=== PATIENT | male | born 1945 | race Caucasian/White ===

== ENCOUNTER 2017-02-11 22:27 | Inpatient (IN) | payer MEDICARE, BC ==
[~2017-02-11] VITALS: Ht 188 cm; Wt 120.9 kg
[2017-02-11 22:50] LABS: BASO % 0 % (0-3); EOS % 1 % (0-3); HEMATOCRIT 36.7 % (39.0-53.0); HEMOGLOBIN 12.5 g/dL (13.0-17.5); LYMPH # 3.8 x10^3/uL (1.0-4.8); LYMPH % 38 % (24-48); MEAN CORPUSCULAR HEMOGLOBIN 30 pg (25-35); MEAN CORPUSCULAR HGB CONC 34 g/dL (31-37); MEAN CORPUSCULAR VOLUME 87 fL (79-100); MONO % 8 % (0-9); NEUT % 53 % (31-73); PLATELET COUNT 198 x10^3/uL (140-400); RED BLOOD COUNT 4.22 x10^6/uL (4.30-5.70); RED CELL DISTRIBUTION WIDTH 13.1 % (11.5-14.5)
[2017-02-11 22:51] LABS: BILIRUBIN,URINE NEGATIVE (NEG); GLUCOSE,URINE >=1000 mg/dL (NEG); NITRITE,URINE NEGATIVE (NEG); PH,URINE 6.5; PROTEIN,URINE NEGATIVE (NEG-TRACE)
[2017-02-11] MEDS ORDERED: IV NORMAL SALINE 500ML BAG 500 ML IV ONE (23:00)
[2017-02-11] MEDS ORDERED: ONDANSETRON PF 4 MG/2 ML VIAL. IV ONE ×2 (23:00→23:45)
[2017-02-11 23:01] LABS: CALCIUM 9.4 mg/dL (8.5-10.1); CREATININE 1.4 mg/dL (0.7-1.3); GFR 49.7; POTASSIUM 3.9 mmol/L (3.5-5.1)
[2017-02-11 23:03] LABS: BACTERIA,URINE 0 /HPF (0-FEW); RBC,URINE OCC /HPF (0-2); SQUAMOUS EPITHELIAL CELL,UR FEW /LPF; WBC,URINE 0 /HPF (0-4)
[2017-02-11 23:07] LABS: ALBUMIN 3.8 g/dL (3.4-5.0); ALBUMIN/GLOBULIN RATIO 1.2 (1.0-1.7); TOTAL BILIRUBIN 1.3 mg/dL (0.2-1.0)
[2017-02-11] MEDS: fentaNYL PF VIAL 100 MCG/2 ML VIAL IV PRN (23:13)
--- NOTE | 2017-02-11 23:44 | RAD ---
Examination: CT of the abdomen pelvis without contrast. HISTORY History of right flank pain. COMPARISON None available. TECHNIQUE Axial CT images of the abdomen pelvis performed without contrast. Coronal sagittal reformats were performed. Exposure: One or more of the following dose reduction technique were utilized for this examination: 1. Automated exposure control. 2.Adjustment of MA and /or KV according to patient size. 3. Use of iterative reconstruction technique. FINDINGS The bibasilar lungs grossly unremarkable. No evidence of free air identified in the abdomen. The evaluation of the solid organs is limited without IV contrast. The evaluation the bowel is limited without oral contrast. The visualized non contrasted liver, spleen, adrenals grossly appears unremarkable. The gallbladder is mildly distended. The stomach is mildly distended. Visualized pancreas grossly appears unremarkable. The small bowel is nondilated left the appendix is normal. Feces and gas noted in the colon. Multiple sigmoid colon diverticulosis identified. On series 2, image number 182 there is subtle fat stranding identified about the one of the sigmoid colon diverticulosis, question minimal diverticulitis. Urinary bladder is mildly distended. There is an 6 millimeter intrarenal collecting system calculus identified in the left kidney. There is a 6 millimeter calculus identified at the in the proximal right ureter causing mild right-sided hydronephrosis and proximal right hydroureter. A cystic structure identified in the inferior pole of the right kidney probably cyst or cystic lesion measuring 3.3 centimeters. There is a moderate inflammatory fat stranding identified above the right kidney could be due to back pressure. Mild degenerative changes lumbar spine. L5 subchondral lies is identified. There is mild anterior listhesis of L5 on S1. Impression : 1. 6 millimeter calculus identified in the proximal right ureter causing mild right-sided hydronephrosis and proximal hydroureter. There is moderate inflammatory fat stranding identified about the right kidney likely secondary to back pressure from obstructing calculus. 2. 6 millimeter intrarenal collecting system calculus identified in the left kidney. 3. Multiple sigmoid colon diverticulosis. On series 2, image number 182 there is subtle fat stranding identified about the one of the sigmoid colon diverticulosis, question minimal diverticulitis. Electronically signed by: Lit Canchola (Feb 11, 2017 23:42:35)
[2017-02-12] VITALS (7 sets, daily range): BP systolic 118–162; BP diastolic 71–79
[2017-02-12] MEDS: fentaNYL PF VIAL 100 MCG/2 ML VIAL IV PRN (00:43)
[2017-02-12] MEDS ORDERED: KETOROLAC 15 MG/ML VIAL. IV PRN (01:00)
[2017-02-12] MEDS ORDERED: MORPHINE SULFATE 4 MG/ML DISP.SYRIN. IV PRN (01:00)
[2017-02-12] MEDS ORDERED: KETOROLAC 15 MG/ML VIAL. IV ONE (01:00)
[2017-02-12] MEDS ORDERED: TAMSULOSIN 0.4 MG CAP.ER.24H. PO ONE (01:00)
[2017-02-12] MEDS ORDERED: ONDANSETRON PF 4 MG/2 ML VIAL. IV ONE (01:00)
[2017-02-12] MEDS ORDERED: ACETAMINOPHEN 325 MG TABLET. PO PRN (01:00)
[2017-02-12] MEDS ORDERED: ONDANSETRON PF 4 MG/2 ML VIAL. IV PRN (01:00)
--- NOTE | 2017-02-12 01:06 | ACF ---
Admission Forms Criteria RENAL COLIC AND KIDNEY STONES Clinical Indications for Admission to Inpatient Care ( Place 'X' for any and all applicable criteria): Admission is indicated for ANY ONE of the following (1)(2)(3)(4): [X]I. Inpatient admission required rather than observation care (Also use Renal Colic and Kidney Stones: Observation Care Criteria as appropriate) because of ANY ONE of the following: [ ]a) Severe pain requiring acute inpatient management [ ]b) Urinary tract infection identified [ ]c) Vomiting that is severe or persistent [ ]d) IV fluid required rather than oral rehydration to replace significant ongoing (eg, for greater than 24 hours) losses (greater than 200 mL/hr or 3 L/m2 per day) [ ]e) Percutaneous or open drainage (eg, abscess, biliary tract) procedures [X]f) Other condition, treatment or monitoring requiring inpatient admission [ ]II. Impending acute renal failure [ ]III. Bilateral obstruction [ ]IV. Single kidney with obstruction [ ]V. Transplanted kidney with obstruction [ ]. Possible open surgical procedure needed (eg, pyonephrosis, stone removal not amendable to other means) [ ]VII. Hemodynamic instability Extended stay beyond goal length of stay may be needed for(2)(3)(31): [ ]a) Failed initial stone removal (32) [ ]b) Pyonephrosis [ ]c) Obstructive uropathy with urinary tract infection [ ]d) Procedure complications [ ]e) Comorbidities (22) The original [employer] content created by [employer] has been revised. The portions of the content which have been revised are identified through the use of italic text or in bold, and [facility] has neither reviewed nor approved the modified material. All other unmodified content is copyright [employer]. Please see references footnoted in the original [employer] edition 2016 Admission Criteria Met?: Yes TEO HOWARD Feb 12, 2017 01:05
[2017-02-12] MEDS ORDERED: DEXTROSE 50% 25 GM / 50ML DISP.SYRIN. IV PRN ×2 (01:45→11:45)
--- NOTE | 2017-02-12 01:52 | ED.ADGEN ---
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 Patient states the pain is the same as the pain he experienced with his last episode of renal calculi. Discussed occurred about 2 years ago, he states his last seen by urology about a year ago, states that previously he has passed the stones without any assistance. Patient states the pain began suddenly, and did not respond to the 10 mg hydrocodone which she received for pain. Patient is also experiencing nausea and vomiting, denies any fevers or chills, any injuries, any weakness numbness or tingling. He states that his knee is healing well, is experiencing no pain in his knee at this time , he did perform physical therapy without issue earlier today. No chest pain, shortness of breath. Review of Systems Review of Systems Constitutional: Denies fever or chills. [] Eyes: Denies change in visual acuity. [] HENT: Denies nasal congestion or sore throat. [] Respiratory: Denies cough or shortness of breath. [] Cardiovascular: Denies chest pain or edema. [] GI: Right lower quadrant abdominal pain and right flank pain, associated with nausea and vomiting. No diarrhea, no bloody stools or bloody emesis. : Denies dysuria. [] Musculoskeletal: Denies back pain or joint pain. [] Integument: Denies rash. [] Neurologic: Denies headache, focal weakness or sensory changes. [] Endocrine: Denies polyuria or polydipsia. [] Lymphatic: Denies swollen glands. [] Psychiatric: Denies depression or anxiety. [] Current Medications Current Medications Current Medications Medications (Trade) Dose Ordered Sig/Oli Start Time Stop Time Status Last Admin Dose Admin Fentanyl Citrate (Fentanyl 2ml Vial) 50 mcg PRN Q15MIN PRN 02/11/17 22:45 02/12/17 22:44 02/12/17 00:43 50 MCG Ondansetron HCl (Zofran) 4 mg 1X ONCE 02/11/17 23:45 02/11/17 23:50 DC 02/11/17 23:45 4 MG Ondansetron HCl 4 mg 4 mg 1X ONCE 02/11/17 23:00 02/11/17 23:01 DC 02/11/17 23:12 4 MG Sodium Chloride (Iv Sodium Chloride 0.9% 500ml Bag) 500 ml @ 500 mls/hr 1X ONCE 02/11/17 23:00 02/11/17 23:59 DC 02/11/17 23:11 500 MLS/HR Allergies Allergies Allergies Coded Allergies Type Severity Reaction Last Updated Verified shellfish derived Allergy Severe 02/11/17 Yes Physical Exam Physical Exam Constitutional: Well developed, well nourished, no acute distress, non-toxic appearance. [] HENT: Normocephalic, atraumatic, bilateral external ears normal, oropharynx moist, no oral exudates, nose normal. [] Eyes: PERRLA, EOMI, conjunctiva normal, no discharge. [] Neck: Normal range of motion, no tenderness, supple, no stridor. [] Cardiovascular:Heart rate regular rhythm, no murmur [] Lungs & Thorax: Bilateral breath sounds clear to auscultation [] Abdomen: Bowel sounds normal, soft, no tenderness, no masses, no pulsatile masses. [] Skin: Warm, dry, no erythema, no rash. [] Back: No tenderness, no CVA tenderness. [] Extremities: No tenderness, no cyanosis, no clubbing, ROM intact, no edema. [] Neurologic: Alert and oriented X 3, normal motor function, normal sensory function, no focal deficits noted. [] Psychologic: Affect normal, judgement normal, mood normal. [] Current Patient Data Vital Signs Vital Signs Date Time Temp Pulse Resp B/P Pulse Ox O2 Delivery O2 Flow Rate FiO2 02/11/17 23:13 22 02/11/17 22:30 97.7 100 172/83 99 Room Air 97.7 Lab Values Laboratory Tests Test 02/11/17 22:35 02/11/17 22:45 White Blood Count 10.0x10^3/uL (4.0-11.0) Red Blood Count 4.22x10^6/uL (4.30-5.70) L Hemoglobin 12.5g/dL (13.0-17.5) L Hematocrit 36.7% (39.0-53.0) L Mean Corpuscular Volume 87fL (79-100) Mean Corpuscular Hemoglobin 30pg (25-35) Mean Corpuscular Hemoglobin Concent 34g/dL (31-37) Red Cell Distribution Width 13.1% (11.5-14.5) Platelet Count 198x10^3/uL (140-400) Neutrophils (%) (Auto) 53% (31-73) Lymphocytes (%) (Auto) 38% (24-48) Monocytes (%) (Auto) 8% (0-9) Eosinophils (%) (Auto) 1% (0-3) Basophils (%) (Auto) 0% (0-3) Neutrophils # (Auto) 5.3x10^3uL (1.8-7.7) Lymphocytes # (Auto) 3.8x10^3/uL (1.0-4.8) Monocytes # (Auto) 0.8x10^3/uL (0.0-1.1) Eosinophils # (Auto) 0.1x10^3/uL (0.0-0.7) Basophils # (Auto) 0.0x10^3/uL (0.0-0.2) Sodium Level 133mmol/L (136-145) L Potassium Level 3.9mmol/L (3.5-5.1) Chloride Level 98mmol/L (98-107) Carbon Dioxide Level 24mmol/L (21-32) Anion Gap 11 (6-14) Blood Urea Nitrogen 22mg/dL (8-26) Creatinine 1.4mg/dL (0.7-1.3) H Estimated GFR (Cockcroft-Gault) 49.7 BUN/Creatinine Ratio 16 (6-20) Glucose Level 272mg/dL (70-99) H Calcium Level 9.4mg/dL (8.5-10.1) Total Bilirubin 1.3mg/dL (0.2-1.0) H Aspartate Amino Transferase (AST) 27U/L (15-37) Alanine Aminotransferase (ALT) 32U/L (16-63) Alkaline Phosphatase 58U/L (46-116) Total Protein 7.0g/dL (6.4-8.2) Albumin 3.8g/dL (3.4-5.0) Albumin/Globulin Ratio 1.2 (1.0-1.7) Lipase 118U/L (73-393) Urine Collection Type Unknown Urine Color Yellow Urine Clarity Clear Urine pH 6.5 Urine Specific Mcguffey 1.015 Urine Protein Negativemg/dL (NEG-TRACE) Urine Glucose (UA) >=1000mg/dL (NEG) Urine Ketones (Stick) 15mg/dL (NEG) Urine Blood Negative (NEG) Urine Nitrite Negative (NEG) Urine Bilirubin Negative (NEG) Urine Urobilinogen Dipstick 1.0mg/dL (0.2 mg/dL) Urine Leukocyte Esterase Negative (NEG) Urine RBC Occ/HPF (0-2) Urine WBC 0/HPF (0-4) Urine Squamous Epithelial Cells Few/LPF Urine Bacteria 0/HPF (0-FEW) Laboratory Tests 02/11/17 22:35 Laboratory Tests 02/11/17 22:35 EKG EKG EC: Sinus rhythm, heart rate 100 bpm, upright axis, QTC of 431, MT 120, QRS of 90, T-wave flattening noted in V2 and aVF, no ST elevations or depressions, abnormal ECG, does not meet STEMI criteria. As interpreted by me. Radiology/Procedures Radiology/Procedures [] [facility] [address] [place], [place] [id number] IMAGING REPORT Signed PATIENT: RICARDO NAVARRO ACCOUNT: [id number] : 1945 LOCATION: ER AGE: 71 SEX: M EXAM STATUS: REG ER ORD. PHYSICIAN: GIANNI DUBOSE DO REASON: RT flank/abd pain, hx renal calculi PROCEDURE: CT ABDOMEN PELVIS WO CONTRAST Examination: CT of the abdomen pelvis without contrast. HISTORY History of right flank pain. COMPARISON None available. TECHNIQUE Axial CT images of the abdomen pelvis performed without contrast. Coronal sagittal reformats were performed. Exposure: One or more of the following dose reduction technique were utilized for this examination: 1. Automated exposure control. 2.Adjustment of MA and /or KV according to patient size. 3. Use of iterative reconstruction technique. FINDINGS The bibasilar lungs grossly unremarkable. No evidence of free air identified in the abdomen. The evaluation of the solid organs is limited without IV contrast. The evaluation the bowel is limited without oral contrast. The visualized non contrasted liver, spleen, adrenals grossly appears unremarkable. The gallbladder is mildly distended. The stomach is mildly distended. Visualized pancreas grossly appears unremarkable. The small bowel is nondilated left the appendix is normal. Feces and gas noted in the colon. Multiple sigmoid colon diverticulosis identified. On series 2, image number 182 there is subtle fat stranding identified about the one of the sigmoid colon diverticulosis, question minimal diverticulitis. Urinary bladder is mildly distended. There is an 6 millimeter intrarenal collecting system calculus identified in the left kidney. There is a 6 millimeter calculus identified at the in the proximal right ureter causing mild right-sided hydronephrosis and proximal right hydroureter. A cystic structure identified in the inferior pole of the right kidney probably cyst or cystic lesion measuring 3.3 centimeters. There is a moderate inflammatory fat stranding identified above the right kidney could be due to back pressure. Mild degenerative changes lumbar spine. L5 subchondral lies is identified. There is mild anterior listhesis of L5 on S1. Impression : 1. 6 millimeter calculus identified in the proximal right ureter causing mild right-sided hydronephrosis and proximal hydroureter. There is moderate inflammatory fat stranding identified about the right kidney likely secondary to back pressure from obstructing calculus. 2. 6 millimeter intrarenal collecting system calculus identified in the left kidney. 3. Multiple sigmoid colon diverticulosis. On series 2, image number 182 there is subtle fat stranding identified about the one of the sigmoid colon diverticulosis, question minimal diverticulitis. Electronically signed by: Lit Canchola (Feb 11, 2017 23:42:35) DICTATED and SIGNED BY: LIT CANCHOLA MD DATE: 02/11/17 7494 CC: QASIM SHAW; GIANNI DUBOSE DO ~ Course & Med Decision Making Course & Med Decision Making Pertinent Labs and Imaging studies reviewed. (See chart for details) Patient's examination and history concerning for recurrent renal calculi. Patient received IV fluids, antiemetics, pain medication with improvement of his symptoms. CT of abdomen and pelvis performed without contrast, reveals 6 mm obstructing stone in the right ureter, with surrounding stranding, no leukocytosis, no evidence of infection noted in the urine. I did discuss these findings with patient, patient also noted to have potential mild diverticulitis of the sigmoid colon, however he not experiencing any diarrhea, or other symptoms, at this time will continue to monitor as the concerning pathology is the renal calculi as noted. Mild renal sufficiency noted with a creatinine of 1.4. Patient is agreeable for admission to the hospital for evaluation by urology. As there is no evidence of leukocytosis or bacteria in the urine, will hold off antibiotics at this time, we'll treat symptomatically. Patient's nausea and pain controlled with IV medications, IV fluids infusing, at time of discussion with Dr. Oleary of internal medicine, patient accepted to her service as a full admission to the medical surgical floor, with supportive management and urology consultation. Bridge orders entered per discussion. Patient transferred to the floor without issue. Dragon Disclaimer Dragon Disclaimer This electronic medical record was generated, in whole or in part, using a voice recognition dictation system. Departure Impression: Primary Impression: Renal calculus, right Additional Impression: Acute abdominal pain in right flank Disposition: ADMITTED INPATIENT Admitting Physician: Sanaz Oleary Condition: IMPROVED Problem Qualifiers GIANNI DUBOSE DO Feb 12, 2017 01:52
[2017-02-12] MEDS ORDERED: MELO-156 PO (03:36)
[2017-02-12] MEDS ORDERED: ATOR20TA PO (03:36)
[2017-02-12] MEDS ORDERED: GLIP10TA13 PO (03:36)
[2017-02-12] MEDS ORDERED: UBID200C4 PO (03:36)
[2017-02-12] MEDS ORDERED: CHOL500015 PO (03:36)
[2017-02-12] MEDS ORDERED: HYDR12.58 PO (03:36)
[2017-02-12] MEDS ORDERED: CETI10TA22 PO (03:36)
[2017-02-12] MEDS ORDERED: HYDR-2666 PO (03:36)
[2017-02-12] MEDS ORDERED: TAMS0.4C2 PO (03:36)
[2017-02-12] MEDS ORDERED: METF-620 PO ×2 (03:36)
[2017-02-12] MEDS ORDERED: OXYC-323 PO (03:36)
[2017-02-12] MEDS ORDERED: UBID300C PO (03:36)
[2017-02-12] MEDS ORDERED: LOSA50TA6 PO (03:36)
[2017-02-12] MEDS: IV NORMAL SALINE 1000ML BAG 1,000 ML IV SCH ×3 (03:42→16:58)
--- NOTE | 2017-02-12 07:06 | EKG ---
[facility] [address] [place] [id number] Test Date: 2017-02-11 Test Time: 22:31:48 Pat Name: RICARDO NAVARRO Department: Room: [facility] Gender: M [employer] Operator: : 1945 Requested By: RIO NINO Order Number: [id number] Reading MD: Cesar Helm Measurements Intervals [place] Rate: 100 P: -61 DE: 120 QRS: 36 QRSD: 90 T: 31 QT: 332 QTc: 431 Interpretive Statements SINUS RHYTHM Electronically Signed On 02-12-2017 8:38:23 CDT by Cesar Helm
[2017-02-12] MEDS ORDERED: INSULIN ASPART 300 UNITS/3 ML INSULN.PEN SQ SCH (08:00)
[2017-02-12] MEDS ORDERED: TAMSULOSIN 0.4 MG CAP.ER.24H. PO SCH (09:00)
--- NOTE | 2017-02-12 11:26 | PDOC ---
PROGRESS NOTES Vitals Vitals Vital Signs Date Time Temp Pulse Resp B/P Pulse Ox O2 Delivery O2 Flow Rate FiO2 02/12/17 08:15 Room Air 97.0 02/12/17 07:00 97.2 101 16 138/76 94 97.2 Physical Exam General: Alert, Oriented X3 Heart: Normal S1, Normal S2 Lungs: Clear, Wheezing Extremities: No clubbing, Other (EDEMA rle) Skin: Other (erythema RLE THIGH BACK) Labs LABS Laboratory Tests Test 02/11/17 22:35 02/11/17 22:45 02/12/17 07:43 White Blood Count 10.0x10^3/uL (4.0-11.0) Red Blood Count 4.22x10^6/uL (4.30-5.70) Hemoglobin 12.5g/dL (13.0-17.5) Hematocrit 36.7% (39.0-53.0) Mean Corpuscular Volume 87fL (79-100) Mean Corpuscular Hemoglobin 30pg (25-35) Mean Corpuscular Hemoglobin Concent 34g/dL (31-37) Red Cell Distribution Width 13.1% (11.5-14.5) Platelet Count 198x10^3/uL (140-400) Neutrophils (%) (Auto) 53% (31-73) Lymphocytes (%) (Auto) 38% (24-48) Monocytes (%) (Auto) 8% (0-9) Eosinophils (%) (Auto) 1% (0-3) Basophils (%) (Auto) 0% (0-3) Neutrophils # (Auto) 5.3x10^3uL (1.8-7.7) Lymphocytes # (Auto) 3.8x10^3/uL (1.0-4.8) Monocytes # (Auto) 0.8x10^3/uL (0.0-1.1) Eosinophils # (Auto) 0.1x10^3/uL (0.0-0.7) Basophils # (Auto) 0.0x10^3/uL (0.0-0.2) Sodium Level 133mmol/L (136-145) Potassium Level 3.9mmol/L (3.5-5.1) Chloride Level 98mmol/L (98-107) Carbon Dioxide Level 24mmol/L (21-32) Anion Gap 11 (6-14) Blood Urea Nitrogen 22mg/dL (8-26) Creatinine 1.4mg/dL (0.7-1.3) Estimated GFR (Cockcroft-Gault) 49.7 BUN/Creatinine Ratio 16 (6-20) Glucose Level 272mg/dL (70-99) Calcium Level 9.4mg/dL (8.5-10.1) Total Bilirubin 1.3mg/dL (0.2-1.0) Aspartate Amino Transf (AST/SGOT) 27U/L (15-37) Alanine Aminotransferase (ALT/SGPT) 32U/L (16-63) Alkaline Phosphatase 58U/L (46-116) Total Protein 7.0g/dL (6.4-8.2) Albumin 3.8g/dL (3.4-5.0) Albumin/Globulin Ratio 1.2 (1.0-1.7) Lipase 118U/L (73-393) Urine Collection Type Unknown Urine Color Yellow Urine Clarity Clear Urine pH 6.5 Urine Specific [place] 1.015 Urine Protein Negativemg/dL (NEG-TRACE) Urine Glucose (UA) >=1000mg/dL (NEG) Urine Ketones (Stick) 15mg/dL (NEG) Urine Blood Negative (NEG) Urine Nitrite Negative (NEG) Urine Bilirubin Negative (NEG) Urine Urobilinogen Dipstick 1.0mg/dL (0.2 mg/dL) Urine Leukocyte Esterase Negative (NEG) Urine RBC Occ/HPF (0-2) Urine WBC 0/HPF (0-4) Urine Squamous Epithelial Cells Few/LPF Urine Bacteria 0/HPF (0-FEW) Glucose (Fingerstick) 193mg/dL (70-99) Assessment and Plan Assessmemt and Plan Problems Medical Problems: (1) Acute abdominal pain in right flank Status: Acute (2) Renal calculus, right Status: Acute Problems: Comment Review of Relevant I have reviewed the following items deysi (where applicable) has been applied. Labs Laboratory Tests Test 02/11/17 22:35 02/11/17 22:45 02/12/17 07:43 White Blood Count 10.0x10^3/uL (4.0-11.0) Red Blood Count 4.22x10^6/uL (4.30-5.70) Hemoglobin 12.5g/dL (13.0-17.5) Hematocrit 36.7% (39.0-53.0) Mean Corpuscular Volume 87fL (79-100) Mean Corpuscular Hemoglobin 30pg (25-35) Mean Corpuscular Hemoglobin Concent 34g/dL (31-37) Red Cell Distribution Width 13.1% (11.5-14.5) Platelet Count 198x10^3/uL (140-400) Neutrophils (%) (Auto) 53% (31-73) Lymphocytes (%) (Auto) 38% (24-48) Monocytes (%) (Auto) 8% (0-9) Eosinophils (%) (Auto) 1% (0-3) Basophils (%) (Auto) 0% (0-3) Neutrophils # (Auto) 5.3x10^3uL (1.8-7.7) Lymphocytes # (Auto) 3.8x10^3/uL (1.0-4.8) Monocytes # (Auto) 0.8x10^3/uL (0.0-1.1) Eosinophils # (Auto) 0.1x10^3/uL (0.0-0.7) Basophils # (Auto) 0.0x10^3/uL (0.0-0.2) Sodium Level 133mmol/L (136-145) Potassium Level 3.9mmol/L (3.5-5.1) Chloride Level 98mmol/L (98-107) Carbon Dioxide Level 24mmol/L (21-32) Anion Gap 11 (6-14) Blood Urea Nitrogen 22mg/dL (8-26) Creatinine 1.4mg/dL (0.7-1.3) Estimated GFR (Cockcroft-Gault) 49.7 BUN/Creatinine Ratio 16 (6-20) Glucose Level 272mg/dL (70-99) Calcium Level 9.4mg/dL (8.5-10.1) Total Bilirubin 1.3mg/dL (0.2-1.0) Aspartate Amino Transf (AST/SGOT) 27U/L (15-37) Alanine Aminotransferase (ALT/SGPT) 32U/L (16-63) Alkaline Phosphatase 58U/L (46-116) Total Protein 7.0g/dL (6.4-8.2) Albumin 3.8g/dL (3.4-5.0) Albumin/Globulin Ratio 1.2 (1.0-1.7) Lipase 118U/L (73-393) Urine Collection Type Unknown Urine Color Yellow Urine Clarity Clear Urine pH 6.5 Urine Specific [place] 1.015 Urine Protein Negativemg/dL (NEG-TRACE) Urine Glucose (UA) >=1000mg/dL (NEG) Urine Ketones (Stick) 15mg/dL (NEG) Urine Blood Negative (NEG) Urine Nitrite Negative (NEG) Urine Bilirubin Negative (NEG) Urine Urobilinogen Dipstick 1.0mg/dL (0.2 mg/dL) Urine Leukocyte Esterase Negative (NEG) Urine RBC Occ/HPF (0-2) Urine WBC 0/HPF (0-4) Urine Squamous Epithelial Cells Few/LPF Urine Bacteria 0/HPF (0-FEW) Glucose (Fingerstick) 193mg/dL (70-99) Laboratory Tests Test 02/11/17 22:35 02/11/17 22:45 02/12/17 07:43 White Blood Count 10.0x10^3/uL (4.0-11.0) Red Blood Count 4.22x10^6/uL (4.30-5.70) Hemoglobin 12.5g/dL (13.0-17.5) Hematocrit 36.7% (39.0-53.0) Mean Corpuscular Volume 87fL (79-100) Mean Corpuscular Hemoglobin 30pg (25-35) Mean Corpuscular Hemoglobin Concent 34g/dL (31-37) Red Cell Distribution Width 13.1% (11.5-14.5) Platelet Count 198x10^3/uL (140-400) Neutrophils (%) (Auto) 53% (31-73) Lymphocytes (%) (Auto) 38% (24-48) Monocytes (%) (Auto) 8% (0-9) Eosinophils (%) (Auto) 1% (0-3) Basophils (%) (Auto) 0% (0-3) Neutrophils # (Auto) 5.3x10^3uL (1.8-7.7) Lymphocytes # (Auto) 3.8x10^3/uL (1.0-4.8) Monocytes # (Auto) 0.8x10^3/uL (0.0-1.1) Eosinophils # (Auto) 0.1x10^3/uL (0.0-0.7) Basophils # (Auto) 0.0x10^3/uL (0.0-0.2) Sodium Level 133mmol/L (136-145) Potassium Level 3.9mmol/L (3.5-5.1) Chloride Level 98mmol/L (98-107) Carbon Dioxide Level 24mmol/L (21-32) Anion Gap 11 (6-14) Blood Urea Nitrogen 22mg/dL (8-26) Creatinine 1.4mg/dL (0.7-1.3) Estimated GFR (Cockcroft-Gault) 49.7 BUN/Creatinine Ratio 16 (6-20) Glucose Level 272mg/dL (70-99) Calcium Level 9.4mg/dL (8.5-10.1) Total Bilirubin 1.3mg/dL (0.2-1.0) Aspartate Amino Transf (AST/SGOT) 27U/L (15-37) Alanine Aminotransferase (ALT/SGPT) 32U/L (16-63) Alkaline Phosphatase 58U/L (46-116) Total Protein 7.0g/dL (6.4-8.2) Albumin 3.8g/dL (3.4-5.0) Albumin/Globulin Ratio 1.2 (1.0-1.7) Lipase 118U/L (73-393) Urine Collection Type Unknown Urine Color Yellow Urine Clarity Clear Urine pH 6.5 Urine Specific [place] 1.015 Urine Protein Negativemg/dL (NEG-TRACE) Urine Glucose (UA) >=1000mg/dL (NEG) Urine Ketones (Stick) 15mg/dL (NEG) Urine Blood Negative (NEG) Urine Nitrite Negative (NEG) Urine Bilirubin Negative (NEG) Urine Urobilinogen Dipstick 1.0mg/dL (0.2 mg/dL) Urine Leukocyte Esterase Negative (NEG) Urine RBC Occ/HPF (0-2) Urine WBC 0/HPF (0-4) Urine Squamous Epithelial Cells Few/LPF Urine Bacteria 0/HPF (0-FEW) Glucose (Fingerstick) 193mg/dL (70-99) Medications Current Medications Fentanyl Citrate (Fentanyl 2ml Vial) 50 mcg PRN Q15MIN PRN IV PAIN GREATER THAN 3/10 Last administered on 02/12/17 00:43; Start 02/11/17 at 22:45; Stop at 22:44 Ondansetron HCl 4 mg 4 mg 1X ONCE IV Last administered on 02/11/17 23:12; Start 02/11/17 at 23:00; Stop 02/11/17 at 23:01; Status DC Sodium Chloride (Iv Sodium Chloride 0.9% 500ml Bag) 500 ml @ 500 mls/hr 1X ONCE IV Last administered on 02/11/17 23:11; Start 02/11/17 at 23:00; Stop at 23:59; Status DC Ondansetron HCl (Zofran) 4 mg 1X ONCE IV Last administered on 02/11/17 23:45 ; Start 02/11/17 at 23:45; Stop 02/11/17 at 23:50; Status DC Ketorolac Tromethamine (Toradol) 10 mg 1X ONCE IV Last administered on 00:49; Start 02/12/17 at 01:00; Stop 02/12/17 at 01:01; Status DC Ondansetron HCl (Zofran) 4 mg 1X ONCE IV Last administered on 02/12/17 00:47 ; Start 02/12/17 at 01:00; Stop 02/12/17 at 01:01; Status DC Tamsulosin HCl (Flomax) 0.4 mg 1X ONCE PO Last administered on 02/12/17 00:51 ; Start 02/12/17 at 01:00; Stop 02/12/17 at 01:01; Status DC Ondansetron HCl (Zofran) 4 mg PRN Q8HRS PRN IV NAUSEA/VOMITING; Start 02/12/17 at 01:00; Stop 02/13/17 at 00:59 Morphine Sulfate 4 mg 4 mg PRN Q2HR PRN IV SEVERE PAIN; Start 02/12/17 at 01:00 ; Stop 02/13/17 at 00:59 Sodium Chloride (Iv Sodium Chloride 0.9% 1000ml Bag) 1,000 ml @ 125 mls/hr Q8H IV Last administered on 02/12/17 08:32; Start 02/12/17 at 00:58; Stop at 00:57 Acetaminophen (Tylenol) 650 mg PRN Q4HRS PRN PO FEVER; Start 02/12/17 at 01:00 ; Stop 02/13/17 at 00:59 Ketorolac Tromethamine (Toradol) 10 mg PRN Q8HRS PRN IV MODERATE PAIN; Start at 01:00; Stop 02/17/17 at 00:59 Tamsulosin HCl (Flomax) 0.4 mg DAILY PO Last administered on 02/12/17 08:26; Start 02/12/17 at 09:00 Insulin Aspart (Novolog) 0-5 UNITS TIDWMEALS SQ Last administered on 02/12/17 08:31; Start 02/12/17 at 08:00 Dextrose (Dextrose 50%-Water Syringe) 12.5 gm PRN Q15MIN PRN IV SEE COMMENTS; Start 02/12/17 at 01:45 Active Scripts Active Reported Hydrocodone-Apap 5-325 (Hydrocodone Bit/Acetaminophen) 1 Each Tablet 1-2 Tab PO Q4HRS PRN Percocet 5-325 Mg Tablet (Oxycodone/Acetaminophen) 1 Each Tablet 1-2 Tab PO Q4- 6HRS Co Q-10 (Ubidecarenone) 300 Mg Capsule 300 Mg PO DAILY Co Q-10 (Ubidecarenone) 200 Mg Capsule 200 Mg PO DAILY Vitamin D (Cholecalciferol (Vitamin D3)) 5,000 Unit Tablet 5,000 Unit PO Zyrtec (Cetirizine Hcl) 10 Mg Tablet 10 Mg PO HS Lipitor (Atorvastatin Calcium) 20 Mg Tablet 20 Mg PO HS Meloxicam 7.5 Mg Tablet 7.5 Mg PO DAILY Tamsulosin Hcl 0.4 Mg Cap.er.24h 0.4 Mg PO DAILY Hydrochlorothiazide Tablet (Hydrochlorothiazide) 12.5 Mg Tablet 12.5 Mg PO DAILY Losartan Potassium 50 Mg Tablet 80 Mg PO DAILY Glipizide 10 Mg Tablet 10 Mg PO HS Metformin Hcl 1,000 Mg Tablet 1,500 Mg PO HS Metformin Hcl 1,000 Mg Tablet 1,000 Mg PO DAILY Vitals/I & O Vital Sign - Last 24 Hours 02/11/17 02/11/17 02/11/17 02/11/17 22:30 22:59 23:13 23:43 Temp 97.7 97.7 Pulse 100 98 94 Resp 18 24 B/P 172/83 153/90 145/102 Pulse Ox 99 98 95 O2 Delivery Room Air Room Air Room Air 02/12/17 02/12/17 02/12/17 02/12/17 00:29 00:43 00:59 01:29 Pulse 100 96 96 Resp 15 19 B/P 156/74 138/72 153/66 Pulse Ox 100 96 96 O2 Delivery Room Air Room Air Room Air Room Air 02/12/17 02/12/17 02/12/17 02/12/17 01:45 03:01 03:52 07:00 Temp 98.6 98.6 97.2 98.6 98.6 97.2 Pulse 95 95 101 Resp 16 B/P 134/71 134/71 138/76 Pulse Ox 97 94 O2 Delivery Room Air Room Air Room Air Room Air O2 Flow Rate 97.0 02/12/17 08:15 O2 Delivery Room Air O2 Flow Rate 97.0 SOPHIE TORRES MD Feb 12, 2017 11:26
--- NOTE | 2017-02-12 11:28 | PDOC1 ---
History and Physical Current Problem List Problem List Problems Medical Problems: (1) Acute abdominal pain in right flank Status: Acute (2) Renal calculus, right Status: Acute Current Medications Current Medications Current Medications Medications (Trade) Dose Ordered Sig/Oli Start Time Stop Time Status Last Admin Dose Admin Acetaminophen (Tylenol) 650 mg PRN Q4HRS PRN 02/12/17 01:00 02/13/17 00:59 Dextrose (Dextrose 50%-Water Syringe) 12.5 gm PRN Q15MIN PRN 02/12/17 01:45 Fentanyl Citrate (Fentanyl 2ml Vial) 50 mcg PRN Q15MIN PRN 02/11/17 22:45 02/12/17 22:44 02/12/17 00:43 Insulin Aspart (Novolog) 0-5 UNITS TIDWMEALS 02/12/17 08:00 02/12/17 08:31 Ketorolac Tromethamine (Toradol) 10 mg PRN Q8HRS PRN 02/12/17 01:00 02/17/17 00:59 Morphine Sulfate 4 mg 4 mg PRN Q2HR PRN 02/12/17 01:00 02/13/17 00:59 Ondansetron HCl (Zofran) 4 mg PRN Q8HRS PRN 02/12/17 01:00 02/13/17 00:59 Ondansetron HCl 4 mg 4 mg 1X ONCE 02/11/17 23:00 02/11/17 23:01 DC 02/11/17 23:12 Sodium Chloride (Iv Sodium Chloride 0.9% 500ml Bag) 500 ml @ 500 mls/hr 1X ONCE 02/11/17 23:00 02/11/17 23:59 DC 02/11/17 23:11 Sodium Chloride (Iv Sodium Chloride 0.9% 1000ml Bag) 1,000 ml @ 125 mls/hr Q8H 02/12/17 00:58 02/13/17 00:57 02/12/17 08:32 Tamsulosin HCl (Flomax) 0.4 mg DAILY 02/12/17 09:00 02/12/17 08:26 Allergies Allergies Allergies Coded Allergies Type Severity Reaction Last Updated Verified shellfish derived Allergy Severe 02/11/17 Yes ROS Review of System CONSTITUTIONAL: No fever or chills EYES: No recent changes SKIN: No rash or itching CARDIOVASCULAR: No chest pain, syncope, palpitations, or edema RESPIRATORY: No SOB or cough GASTROINTESTINAL: No nausea, vomiting BUT abdominal pain RLQ NEUROLOGICAL: No headaches or weakness ENDOCRINE: No cold or heat intolerance GENITOURINARY: No urgency or frequency of urination MUSCULOSKELETAL: No back pain or joint pain LYMPHATICS: No enlarged lymph nodes PSYCHIATRIC: No anxiety or depression Physical Exam Physical Exam GEN.: No apparent distress. Alert and oriented times 3 HEENT: Head is normocephalic, atraumatic NECK: Supple. no jvd LUNGS: Clear to auscultation. normal airflow HEART: RRR, S1, S2 present. Peripheral pulses intact ABDOMEN: Soft, nontender. Positive bowel sounds. EXTREMITIES: RLE edema +3, redness on back of leg R, thigh, NEUROLOGIC: Normal speech, normal tone PSYCHIATRIC: Normal affect, normal mood. SKIN: ? petechia Vitals Vitals Vital Signs Date Time Temp Pulse Resp B/P Pulse Ox O2 Delivery O2 Flow Rate FiO2 02/12/17 08:15 Room Air 97.0 02/12/17 07:00 97.2 101 16 138/76 94 97.2 Labs Labs Laboratory Tests Test 02/11/17 22:35 02/11/17 22:45 02/12/17 07:43 White Blood Count 10.0x10^3/uL (4.0-11.0) Red Blood Count 4.22x10^6/uL (4.30-5.70) Hemoglobin 12.5g/dL (13.0-17.5) Hematocrit 36.7% (39.0-53.0) Mean Corpuscular Volume 87fL (79-100) Mean Corpuscular Hemoglobin 30pg (25-35) Mean Corpuscular Hemoglobin Concent 34g/dL (31-37) Red Cell Distribution Width 13.1% (11.5-14.5) Platelet Count 198x10^3/uL (140-400) Neutrophils (%) (Auto) 53% (31-73) Lymphocytes (%) (Auto) 38% (24-48) Monocytes (%) (Auto) 8% (0-9) Eosinophils (%) (Auto) 1% (0-3) Basophils (%) (Auto) 0% (0-3) Neutrophils # (Auto) 5.3x10^3uL (1.8-7.7) Lymphocytes # (Auto) 3.8x10^3/uL (1.0-4.8) Monocytes # (Auto) 0.8x10^3/uL (0.0-1.1) Eosinophils # (Auto) 0.1x10^3/uL (0.0-0.7) Basophils # (Auto) 0.0x10^3/uL (0.0-0.2) Sodium Level 133mmol/L (136-145) Potassium Level 3.9mmol/L (3.5-5.1) Chloride Level 98mmol/L (98-107) Carbon Dioxide Level 24mmol/L (21-32) Anion Gap 11 (6-14) Blood Urea Nitrogen 22mg/dL (8-26) Creatinine 1.4mg/dL (0.7-1.3) Estimated GFR (Cockcroft-Gault) 49.7 BUN/Creatinine Ratio 16 (6-20) Glucose Level 272mg/dL (70-99) Calcium Level 9.4mg/dL (8.5-10.1) Total Bilirubin 1.3mg/dL (0.2-1.0) Aspartate Amino Transf (AST/SGOT) 27U/L (15-37) Alanine Aminotransferase (ALT/SGPT) 32U/L (16-63) Alkaline Phosphatase 58U/L (46-116) Total Protein 7.0g/dL (6.4-8.2) Albumin 3.8g/dL (3.4-5.0) Albumin/Globulin Ratio 1.2 (1.0-1.7) Lipase 118U/L (73-393) Urine Collection Type Unknown Urine Color Yellow Urine Clarity Clear Urine pH 6.5 Urine Specific [place] 1.015 Urine Protein Negativemg/dL (NEG-TRACE) Urine Glucose (UA) >=1000mg/dL (NEG) Urine Ketones (Stick) 15mg/dL (NEG) Urine Blood Negative (NEG) Urine Nitrite Negative (NEG) Urine Bilirubin Negative (NEG) Urine Urobilinogen Dipstick 1.0mg/dL (0.2 mg/dL) Urine Leukocyte Esterase Negative (NEG) Urine RBC Occ/HPF (0-2) Urine WBC 0/HPF (0-4) Urine Squamous Epithelial Cells Few/LPF Urine Bacteria 0/HPF (0-FEW) Glucose (Fingerstick) 193mg/dL (70-99) Laboratory Tests Test 02/11/17 22:35 02/11/17 22:45 02/12/17 07:43 White Blood Count 10.0x10^3/uL (4.0-11.0) Red Blood Count 4.22x10^6/uL (4.30-5.70) Hemoglobin 12.5g/dL (13.0-17.5) Hematocrit 36.7% (39.0-53.0) Mean Corpuscular Volume 87fL (79-100) Mean Corpuscular Hemoglobin 30pg (25-35) Mean Corpuscular Hemoglobin Concent 34g/dL (31-37) Red Cell Distribution Width 13.1% (11.5-14.5) Platelet Count 198x10^3/uL (140-400) Neutrophils (%) (Auto) 53% (31-73) Lymphocytes (%) (Auto) 38% (24-48) Monocytes (%) (Auto) 8% (0-9) Eosinophils (%) (Auto) 1% (0-3) Basophils (%) (Auto) 0% (0-3) Neutrophils # (Auto) 5.3x10^3uL (1.8-7.7) Lymphocytes # (Auto) 3.8x10^3/uL (1.0-4.8) Monocytes # (Auto) 0.8x10^3/uL (0.0-1.1) Eosinophils # (Auto) 0.1x10^3/uL (0.0-0.7) Basophils # (Auto) 0.0x10^3/uL (0.0-0.2) Sodium Level 133mmol/L (136-145) Potassium Level 3.9mmol/L (3.5-5.1) Chloride Level 98mmol/L (98-107) Carbon Dioxide Level 24mmol/L (21-32) Anion Gap 11 (6-14) Blood Urea Nitrogen 22mg/dL (8-26) Creatinine 1.4mg/dL (0.7-1.3) Estimated GFR (Cockcroft-Gault) 49.7 BUN/Creatinine Ratio 16 (6-20) Glucose Level 272mg/dL (70-99) Calcium Level 9.4mg/dL (8.5-10.1) Total Bilirubin 1.3mg/dL (0.2-1.0) Aspartate Amino Transf (AST/SGOT) 27U/L (15-37) Alanine Aminotransferase (ALT/SGPT) 32U/L (16-63) Alkaline Phosphatase 58U/L (46-116) Total Protein 7.0g/dL (6.4-8.2) Albumin 3.8g/dL (3.4-5.0) Albumin/Globulin Ratio 1.2 (1.0-1.7) Lipase 118U/L (73-393) Urine Collection Type Unknown Urine Color Yellow Urine Clarity Clear Urine pH 6.5 Urine Specific [place] 1.015 Urine Protein Negativemg/dL (NEG-TRACE) Urine Glucose (UA) >=1000mg/dL (NEG) Urine Ketones (Stick) 15mg/dL (NEG) Urine Blood Negative (NEG) Urine Nitrite Negative (NEG) Urine Bilirubin Negative (NEG) Urine Urobilinogen Dipstick 1.0mg/dL (0.2 mg/dL) Urine Leukocyte Esterase Negative (NEG) Urine RBC Occ/HPF (0-2) Urine WBC 0/HPF (0-4) Urine Squamous Epithelial Cells Few/LPF Urine Bacteria 0/HPF (0-FEW) Glucose (Fingerstick) 193mg/dL (70-99) VTE Prophylaxis Ordered VTE Prophylaxis Devices: Yes VTE Pharmacological Prophylaxi: Yes SOPHIE TORRES MD Feb 12, 2017 11:28
[2017-02-12] MEDS: TAMSULOSIN 0.4 MG CAP.ER.24H. PO SCH (12:39)
[2017-02-12] MEDS: LOSARTAN POTASSIUM 50 MG TABLET. PO SCH (12:39)
[2017-02-12] MEDS: ENOXAPARIN 40 MG/0.4 ML SYRINGE. SQ SCH (12:40)
[2017-02-12] MEDS: INSULIN ASPART 300 UNITS/3 ML INSULN.PEN SQ SCH ×2 (12:48→17:00)
--- NOTE | 2017-02-12 13:23 | HP ---
ADMIT DATE: 02/12/2017 CHIEF COMPLAINT: Abdominal pain. HISTORY OF PRESENT ILLNESS: A 71-year-old male patient with prior history of diabetes and hypertension, presented to the ER with complaints of sudden onset of right lower quadrant abdominal pain. The patient had a right knee replacement surgery at [facility] and so currently he is at a rehab facility. He noted to have some nagging pain in the right flank region; however, the pain got worse, it is more than 10 and excruciating and this pain is similar to his prior presentation of the renal stone. He had similar episodes in the past; however, the stones passed with urination without any interventions. He was seen by Urology last year, but he never had any stenting or procedures done. The patient tried hydrocodone, which did not help his pain, which made him bring to the ER. At the time of my examination, his symptoms are better with current pain medications; however, he had a right lower extremity swelling and some erythematous rash on the right lower extremity with warmth present on the thigh region, back of the thigh region. PAST MEDICAL HISTORY: Depression, type 2 diabetes mellitus, hypertension, renal stones and Clostridium difficile infection. PAST SURGICAL HISTORY: Knee replacement, tonsillectomy, PERSONAL HISTORY: No smoking, no alcohol, no drug abuse. ALLERGIES: SHELLFISH. REVIEW OF SYSTEMS AND PHYSICAL EXAMINATION: Please see my electronic H and P. FAMILY HISTORY: Unknown to patient's possible hypertension. LABORATORY DATA: CBC: Hemoglobin is 12.5, hematocrit 36.7, WBC 10, and platelets 198. Chemistry: Sodium 133, potassium 3.9, chloride 98, and creatinine 1.4. Glucose 272, BUN is 22. EKG not able to review. As per the ER report, sinus rhythm with tachycardia. IMAGING STUDIES: Abdomen and pelvis CT: Final impression is a 6-mm calculus in the proximal right ureter with mild right-sided hydronephrosis and proximal hydroureter and 6 mm intrarenal collecting system caliculus in the left kidney. ASSESSMENT: 1. Acute right lower quadrant abdominal pain, suspected due to 6 mm right ureter calculus with hydronephrosis and hydroureter. 2. Left intrarenal collecting system calculi. 3. Hypertension. 4. Diabetes. 5. Right lower extremity edema with right thigh redness. 6. Questionable cellulitis of the right thigh. 7. Obesity, BMI 34. PLAN: 1. Has been admitted to the hospital for pain control. Currently, he is on Toradol and IV morphine. Pain is well tolerated. 2. Sliding scale insulin with hyperglycemia. Hold metformin. 3. Home medications reviewed and reconciled. Continue blood pressure medications, p.r.n. hydralazine for high blood pressure. 4. Urology has been consulted. 5. Continue IV hydration and monitor urine output. 6. Ultrasound of the Doppler right lower extremity, rule out any DVT 7. Monitor platelets closely and CBC closely. 8. The patient denies any trauma or falls. 9. Physical therapy and occupational therapy. 10. DVT prophylaxis with Lovenox. 11. Prognosis is guarded, plan explained to the patient. SOPHIE TORRES MD DR: CHERRI/hailey JOB#: [id number] / [id number] MIRI
--- NOTE | 2017-02-12 14:31 | RAD ---
Right lower extremity venous ultrasound, 02/12/2017 : History: Right leg swelling and pain Duplex evaluation including grayscale, color flow and spectral Doppler analysis was performed. The femoral and popliteal veins show no filling defects to suggest DVT. The visualized calf veins are unremarkable. IMPRESSION: There is no sonographic evidence of deep vein thrombosis in the right lower extremity
--- NOTE | 2017-02-12 16:05 | PDOC ---
Provider Note Provider Note UROLOGY: c/c proximal right ureteral calculus (6mm) with ureteral colic Hx of 5-6 previous kidney stones which passed spontaneously Exam: comfortable now Plan: IV hydration, flomax, pain meds as needed KUB tomorrow will see tomorrow MARY PEMBERTON DO Feb 12, 2017 16:05
[2017-02-12] MEDS: HYDROCODONE/APAP 5/325MG TABLET. PO PRN ×2 (17:26→22:59)
[2017-02-12] MEDS: CETIRIZINE HCL 10 MG TABLET. PO SCH (21:06)
[2017-02-12] MEDS: ATORVASTATIN CALCIUM 20 MG TABLET PO SCH (21:06)
--- NOTE | 2017-02-13 02:30 | CONS ---
DATE OF CONSULTATION: 02/12/2017 CHIEF COMPLAINT: Acute right flank pain, proximal right ureteral calculus. HISTORY OF PRESENT ILLNESS: This is a 71-year-old male that was admitted through the Emergency Room with acute right flank pain. He has a history of kidney stones. He states he has had about 5 kidney stones in the past, all of which have passed spontaneously, not requiring intervention. The patient was in rehab undergoing rehabilitation. He just had a right knee prosthesis placed about a week ago when he developed this acute pain. The patient was admitted to the hospital for IV hydration and analgesia. PAST MEDICAL HISTORY: Significant for depression, type 2 diabetes, hypertension, previous history of kidney stones. PAST SURGICAL HISTORY: The patient had right knee replacement last week. He has had right hand surgery and right shoulder surgery. SOCIAL HISTORY: The patient denies drug use. He occasionally has alcohol. ALLERGIES: THE PATIENT IS ALLERGIC TO SHELLFISH. REVIEW OF SYSTEMS: A 14-point review of systems performed, most significant as his HPI. PHYSICAL EXAMINATION: GENERAL DESCRIPTION: A 71-year-old male, weighs 266 pounds, is alert and oriented. He is examined in bed. ABDOMEN: Soft. No palpable abdominal masses. He has some mild right flank discomfort, the left flank was normal. No suprapubic tenderness. RECTAL: Not performed today. MUSCULOSKELETAL: The patient's right knee is bandaged from his right knee replacement last week. The left lower extremity was normal. LABORATORY STUDIES: The patient's white blood cell count is normal at 10.0, hemoglobin 12.5, hematocrit 26.7, platelet count is within normal limits. Chemistries: Creatinine is slightly elevated at 1.4, BUN is 22, sodium 133. Urinalysis, jon in color, negative for leukocytes, occasional red blood cells, negative for bacteria. X-RAY STUDIES: Noncontrast CT scan of the abdomen and pelvis performed on admission revealed a 6 mm calculus in the proximal right ureter with mild right hydronephrosis. He had a 6 mm nonobstructing calculus in the left renal pelvis. IMPRESSION: 1. Acute right ureteral colic -- improved. 2. Proximal right ureteral calculus (6 mm). 3. 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 PLAN: 1. We will continue IV hydration and analgesia to see if the patient will pass the stone spontaneously. 2. He is on Flomax. 3. We will order a KUB of the abdomen tomorrow to see if the stone is progressing distally. I am encouraged that he has passed all of his calculi in the past. MARY PEMBERTON DO DR: Eveline JOB#: [id number] / [id number]
[2017-02-13 03:00] VITALS: BP 139/77
[2017-02-13 05:21] LABS: BASO % 0 % (0-3); EOS % 3 % (0-3); HEMATOCRIT 31.9 % (39.0-53.0); HEMOGLOBIN 10.9 g/dL (13.0-17.5); LYMPH # 3.5 x10^3/uL (1.0-4.8); LYMPH % 47 % (24-48); MEAN CORPUSCULAR HEMOGLOBIN 30 pg (25-35); MEAN CORPUSCULAR HGB CONC 34 g/dL (31-37); MEAN CORPUSCULAR VOLUME 88 fL (79-100); MONO % 9 % (0-9); NEUT % 41 % (31-73); PLATELET COUNT 160 x10^3/uL (140-400); RED BLOOD COUNT 3.61 x10^6/uL (4.30-5.70); RED CELL DISTRIBUTION WIDTH 13.2 % (11.5-14.5); WHITE BLOOD COUNT 7.4 x10^3/uL (4.0-11.0)
[2017-02-13 05:39] LABS: CALCIUM 8.1 mg/dL (8.5-10.1); CREATININE 2.1 mg/dL (0.7-1.3); GFR 31.1; POTASSIUM 4.5 mmol/L (3.5-5.1)
[2017-02-13 07:00] VITALS: BP 134/75
[2017-02-13] MEDS: INSULIN ASPART 300 UNITS/3 ML INSULN.PEN SQ SCH ×3 (08:00→17:39)
[2017-02-13] MEDS ORDERED: LOSARTAN POTASSIUM 50 MG TABLET. PO SCH (09:00)
--- NOTE | 2017-02-13 09:44 | RAD ---
Abdomen radiograph History: Follow-up proximal right ureteral calculus. Comparison: CT abdomen pelvis 02/11/2017. Findings: AP abdomen radiograph, 2 images. Both renal shadows are partially obscured by bowel gas and stool. Known left nephrolith is not well seen. There is a possible faint calcification measuring 5 mm projecting in the right abdomen at the level of the L3-4 interspace which may represent known ureteral stone. Bowel gas pattern is nonspecific, without evidence of obstruction. Impression: Limited examination. No significant interval change in right ureteral stone.
[2017-02-13] MEDS: HYDROCODONE/APAP 5/325MG TABLET. PO PRN (09:46)
[2017-02-13] MEDS: TAMSULOSIN 0.4 MG CAP.ER.24H. PO SCH (09:47)
[2017-02-13] MEDS: LOSARTAN POTASSIUM 50 MG TABLET. PO SCH (09:48)
[2017-02-13] MEDS ORDERED: MORPHINE SULFATE 2 MG/ML DISP.SYRIN. IV PRN (11:00)
[2017-02-13 11:24] VITALS: BP 138/70
--- NOTE | 2017-02-13 11:48 | PDOC ---
PROGRESS NOTES Chief Complaint Chief Complaint 1. Acute right lower quadrant abdominal pain, suspected due to 6 mm right ureter calculus with hydronephrosis and hydroureter. 2. Left intrarenal collecting system calculi. 3. Hypertension. 4. Diabetes with hyperglycemia 5. Right lower extremity edema with right thigh redness. 6. Questionable cellulitis of the right thigh. 7. Obesity, BMI 34. Plan Pain not controlled, increase morphine to 4 mg q2hrs NPO for now, appreciate urology recommendatons IV Rocephin IV hydration SSI for hyperglycemia. DVT prophylaxis US legs, no DVT HTN stable Vitals Vitals Vital Signs Date Time Temp Pulse Resp B/P Pulse Ox O2 Delivery O2 Flow Rate FiO2 02/13/17 11:24 98.0 86 16 138/70 98 Room Air 98.0 02/13/17 10:47 97.0 Physical Exam General: Alert, Oriented X3 Heart: Normal S1, Normal S2 Lungs: Clear, Wheezing Extremities: No clubbing, Other (EDEMA rle) Skin: Other (erythema RLE THIGH BACK) Labs LABS Laboratory Tests Test 02/12/17 17:04 02/12/17 20:51 02/13/17 04:40 02/13/17 08:02 Glucose (Fingerstick) 149mg/dL (70-99) 212mg/dL (70-99) 215mg/dL (70-99) White Blood Count 7.4x10^3/uL (4.0-11.0) Red Blood Count 3.61x10^6/uL (4.30-5.70) Hemoglobin 10.9g/dL (13.0-17.5) Hematocrit 31.9% (39.0-53.0) Mean Corpuscular Volume 88fL (79-100) Mean Corpuscular Hemoglobin 30pg (25-35) Mean Corpuscular Hemoglobin Concent 34g/dL (31-37) Red Cell Distribution Width 13.2% (11.5-14.5) Platelet Count 160x10^3/uL (140-400) Neutrophils (%) (Auto) 41% (31-73) Lymphocytes (%) (Auto) 47% (24-48) Monocytes (%) (Auto) 9% (0-9) Eosinophils (%) (Auto) 3% (0-3) Basophils (%) (Auto) 0% (0-3) Neutrophils # (Auto) 3.1x10^3uL (1.8-7.7) Lymphocytes # (Auto) 3.5x10^3/uL (1.0-4.8) Monocytes # (Auto) 0.7x10^3/uL (0.0-1.1) Eosinophils # (Auto) 0.2x10^3/uL (0.0-0.7) Basophils # (Auto) 0.0x10^3/uL (0.0-0.2) Sodium Level 138mmol/L (136-145) Potassium Level 4.5mmol/L (3.5-5.1) Chloride Level 105mmol/L (98-107) Carbon Dioxide Level 26mmol/L (21-32) Anion Gap 7 (6-14) Blood Urea Nitrogen 24mg/dL (8-26) Creatinine 2.1mg/dL (0.7-1.3) Estimated GFR (Cockcroft-Gault) 31.1 Glucose Level 188mg/dL (70-99) Calcium Level 8.1mg/dL (8.5-10.1) Test 02/13/17 10:57 Glucose (Fingerstick) 223mg/dL (70-99) Assessment and Plan Assessmemt and Plan Problems Medical Problems: (1) Acute abdominal pain in right flank Status: Acute (2) Renal calculus, right Status: Acute Problems: Comment Review of Relevant I have reviewed the following items deysi (where applicable) has been applied. Labs Laboratory Tests Test 02/11/17 22:35 02/11/17 22:45 02/12/17 02:45 02/12/17 07:43 White Blood Count 10.0x10^3/uL (4.0-11.0) Red Blood Count 4.22x10^6/uL (4.30-5.70) Hemoglobin 12.5g/dL (13.0-17.5) Hematocrit 36.7% (39.0-53.0) Mean Corpuscular Volume 87fL (79-100) Mean Corpuscular Hemoglobin 30pg (25-35) Mean Corpuscular Hemoglobin Concent 34g/dL (31-37) Red Cell Distribution Width 13.1% (11.5-14.5) Platelet Count 198x10^3/uL (140-400) Neutrophils (%) (Auto) 53% (31-73) Lymphocytes (%) (Auto) 38% (24-48) Monocytes (%) (Auto) 8% (0-9) Eosinophils (%) (Auto) 1% (0-3) Basophils (%) (Auto) 0% (0-3) Neutrophils # (Auto) 5.3x10^3uL (1.8-7.7) Lymphocytes # (Auto) 3.8x10^3/uL (1.0-4.8) Monocytes # (Auto) 0.8x10^3/uL (0.0-1.1) Eosinophils # (Auto) 0.1x10^3/uL (0.0-0.7) Basophils # (Auto) 0.0x10^3/uL (0.0-0.2) Sodium Level 133mmol/L (136-145) Potassium Level 3.9mmol/L (3.5-5.1) Chloride Level 98mmol/L (98-107) Carbon Dioxide Level 24mmol/L (21-32) Anion Gap 11 (6-14) Blood Urea Nitrogen 22mg/dL (8-26) Creatinine 1.4mg/dL (0.7-1.3) Estimated GFR (Cockcroft-Gault) 49.7 BUN/Creatinine Ratio 16 (6-20) Glucose Level 272mg/dL (70-99) Calcium Level 9.4mg/dL (8.5-10.1) Total Bilirubin 1.3mg/dL (0.2-1.0) Aspartate Amino Transf (AST/SGOT) 27U/L (15-37) Alanine Aminotransferase (ALT/SGPT) 32U/L (16-63) Alkaline Phosphatase 58U/L (46-116) Total Protein 7.0g/dL (6.4-8.2) Albumin 3.8g/dL (3.4-5.0) Albumin/Globulin Ratio 1.2 (1.0-1.7) Lipase 118U/L (73-393) Urine Collection Type Unknown Urine Color Yellow Urine Clarity Clear Urine pH 6.5 Urine Specific [place] 1.015 Urine Protein Negativemg/dL (NEG-TRACE) Urine Glucose (UA) >=1000mg/dL (NEG) Urine Ketones (Stick) 15mg/dL (NEG) Urine Blood Negative (NEG) Urine Nitrite Negative (NEG) Urine Bilirubin Negative (NEG) Urine Urobilinogen Dipstick 1.0mg/dL (0.2 mg/dL) Urine Leukocyte Esterase Negative (NEG) Urine RBC Occ/HPF (0-2) Urine WBC 0/HPF (0-4) Urine Squamous Epithelial Cells Few/LPF Urine Bacteria 0/HPF (0-FEW) Nasal Screen MRSA (PCR) Negative (Negative) Glucose (Fingerstick) 193mg/dL (70-99) Test 02/12/17 11:15 02/12/17 17:04 02/12/17 20:51 02/13/17 04:40 Glucose (Fingerstick) 162mg/dL (70-99) 149mg/dL (70-99) 212mg/dL (70-99) White Blood Count 7.4x10^3/uL (4.0-11.0) Red Blood Count 3.61x10^6/uL (4.30-5.70) Hemoglobin 10.9g/dL (13.0-17.5) Hematocrit 31.9% (39.0-53.0) Mean Corpuscular Volume 88fL (79-100) Mean Corpuscular Hemoglobin 30pg (25-35) Mean Corpuscular Hemoglobin Concent 34g/dL (31-37) Red Cell Distribution Width 13.2% (11.5-14.5) Platelet Count 160x10^3/uL (140-400) Neutrophils (%) (Auto) 41% (31-73) Lymphocytes (%) (Auto) 47% (24-48) Monocytes (%) (Auto) 9% (0-9) Eosinophils (%) (Auto) 3% (0-3) Basophils (%) (Auto) 0% (0-3) Neutrophils # (Auto) 3.1x10^3uL (1.8-7.7) Lymphocytes # (Auto) 3.5x10^3/uL (1.0-4.8) Monocytes # (Auto) 0.7x10^3/uL (0.0-1.1) Eosinophils # (Auto) 0.2x10^3/uL (0.0-0.7) Basophils # (Auto) 0.0x10^3/uL (0.0-0.2) Sodium Level 138mmol/L (136-145) Potassium Level 4.5mmol/L (3.5-5.1) Chloride Level 105mmol/L (98-107) Carbon Dioxide Level 26mmol/L (21-32) Anion Gap 7 (6-14) Blood Urea Nitrogen 24mg/dL (8-26) Creatinine 2.1mg/dL (0.7-1.3) Estimated GFR (Cockcroft-Gault) 31.1 Glucose Level 188mg/dL (70-99) Calcium Level 8.1mg/dL (8.5-10.1) Test 02/13/17 08:02 02/13/17 10:57 Glucose (Fingerstick) 215mg/dL (70-99) 223mg/dL (70-99) Laboratory Tests Test 02/12/17 17:04 02/12/17 20:51 02/13/17 04:40 02/13/17 08:02 Glucose (Fingerstick) 149mg/dL (70-99) 212mg/dL (70-99) 215mg/dL (70-99) White Blood Count 7.4x10^3/uL (4.0-11.0) Red Blood Count 3.61x10^6/uL (4.30-5.70) Hemoglobin 10.9g/dL (13.0-17.5) Hematocrit 31.9% (39.0-53.0) Mean Corpuscular Volume 88fL (79-100) Mean Corpuscular Hemoglobin 30pg (25-35) Mean Corpuscular Hemoglobin Concent 34g/dL (31-37) Red Cell Distribution Width 13.2% (11.5-14.5) Platelet Count 160x10^3/uL (140-400) Neutrophils (%) (Auto) 41% (31-73) Lymphocytes (%) (Auto) 47% (24-48) Monocytes (%) (Auto) 9% (0-9) Eosinophils (%) (Auto) 3% (0-3) Basophils (%) (Auto) 0% (0-3) Neutrophils # (Auto) 3.1x10^3uL (1.8-7.7) Lymphocytes # (Auto) 3.5x10^3/uL (1.0-4.8) Monocytes # (Auto) 0.7x10^3/uL (0.0-1.1) Eosinophils # (Auto) 0.2x10^3/uL (0.0-0.7) Basophils # (Auto) 0.0x10^3/uL (0.0-0.2) Sodium Level 138mmol/L (136-145) Potassium Level 4.5mmol/L (3.5-5.1) Chloride Level 105mmol/L (98-107) Carbon Dioxide Level 26mmol/L (21-32) Anion Gap 7 (6-14) Blood Urea Nitrogen 24mg/dL (8-26) Creatinine 2.1mg/dL (0.7-1.3) Estimated GFR (Cockcroft-Gault) 31.1 Glucose Level 188mg/dL (70-99) Calcium Level 8.1mg/dL (8.5-10.1) Test 02/13/17 10:57 Glucose (Fingerstick) 223mg/dL (70-99) Medications Current Medications Fentanyl Citrate (Fentanyl 2ml Vial) 50 mcg PRN Q15MIN PRN IV PAIN GREATER THAN 3/10 Last administered on 02/12/17 00:43; Start 02/11/17 at 22:45; Stop at 22:44; Status DC Ondansetron HCl 4 mg 4 mg 1X ONCE IV Last administered on 02/11/17 23:12; Start 02/11/17 at 23:00; Stop 02/11/17 at 23:01; Status DC Sodium Chloride (Iv Sodium Chloride 0.9% 500ml Bag) 500 ml @ 500 mls/hr 1X ONCE IV Last administered on 02/11/17 23:11; Start 02/11/17 at 23:00; Stop at 23:59; Status DC Ondansetron HCl (Zofran) 4 mg 1X ONCE IV Last administered on 02/11/17 23:45 ; Start 02/11/17 at 23:45; Stop 02/11/17 at 23:50; Status DC Ketorolac Tromethamine (Toradol) 10 mg 1X ONCE IV Last administered on 00:49; Start 02/12/17 at 01:00; Stop 02/12/17 at 01:01; Status DC Ondansetron HCl (Zofran) 4 mg 1X ONCE IV Last administered on 02/12/17 00:47 ; Start 02/12/17 at 01:00; Stop 02/12/17 at 01:01; Status DC Tamsulosin HCl (Flomax) 0.4 mg 1X ONCE PO Last administered on 02/12/17 00:51 ; Start 02/12/17 at 01:00; Stop 02/12/17 at 01:01; Status DC Ondansetron HCl (Zofran) 4 mg PRN Q8HRS PRN IV NAUSEA/VOMITING; Start 02/12/17 at 01:00; Stop 02/13/17 at 00:59; Status DC Morphine Sulfate 4 mg 4 mg PRN Q2HR PRN IV SEVERE PAIN; Start 02/12/17 at 01:00 ; Stop 02/13/17 at 00:59; Status DC Sodium Chloride (Iv Sodium Chloride 0.9% 1000ml Bag) 1,000 ml @ 125 mls/hr Q8H IV Last administered on 02/12/17 16:58; Start 02/12/17 at 00:58; Stop at 00:57; Status DC Acetaminophen (Tylenol) 650 mg PRN Q4HRS PRN PO FEVER; Start 02/12/17 at 01:00 ; Stop 02/13/17 at 00:59; Status DC Ketorolac Tromethamine (Toradol) 10 mg PRN Q8HRS PRN IV MODERATE PAIN; Start at 01:00; Stop 02/12/17 at 11:30; Status DC Tamsulosin HCl (Flomax) 0.4 mg DAILY PO Last administered on 02/12/17 08:26; Start 02/12/17 at 09:00; Stop 02/12/17 at 15:49; Status DC Insulin Aspart (Novolog) 0-5 UNITS TIDWMEALS SQ Last administered on 02/12/17 08:31; Start 02/12/17 at 08:00; Stop 02/12/17 at 11:41; Status DC Dextrose (Dextrose 50%-Water Syringe) 12.5 gm PRN Q15MIN PRN IV SEE COMMENTS; Start 02/12/17 at 01:45; Stop 02/12/17 at 11:41; Status DC Atorvastatin Calcium (Lipitor) 20 mg HS PO Last administered on 02/12/17 21:06 ; Start 02/12/17 at 21:00 Cetirizine HCl (Zyrtec) 10 mg HS PO Last administered on 02/12/17 21:06; Start 02/12/17 at 21:00 Acetaminophen/ Hydrocodone Bitart (Lortab 5/325) 1 tab PRN Q4HRS PRN PO PAIN Last administered on 02/13/17 09:46; Start 02/12/17 at 11:30 Losartan Potassium (Cozaar) 80 mg DAILY PO ; Start 02/13/17 at 09:00; Status UNV Tamsulosin HCl (Flomax) 0.4 mg DAILY PO Last administered on 02/13/17 09:47; Start 02/12/17 at 11:30 Enoxaparin Sodium 40 mg 40 mg Q24H SQ Last administered on 02/12/17 12:40; Start 02/12/17 at 12:00 Ceftriaxone Sodium/Sodium Chloride (Rocephin/Iv Sodium Chloride 0.9% 50ml) 50 ml @ 100 mls/hr Q24H IV Last administered on 02/12/17 12:38; Start 02/12/17 at 12:00 Losartan Potassium (Cozaar) 50 mg DAILY PO Last administered on 02/13/17 09:48 ; Start 02/12/17 at 11:30 Insulin Aspart (Novolog) 0-7 UNITS TIDWMEALS SQ Last administered on 02/12/17 12:48; Start 02/12/17 at 12:00 Dextrose (Dextrose 50%-Water Syringe) 12.5 gm PRN Q15MIN PRN IV SEE COMMENTS; Start 02/12/17 at 11:45 Morphine Sulfate 2 mg PRN Q2HR PRN IV PAIN; Start 02/13/17 at 11:00 Active Scripts Active Reported Hydrocodone-Apap 5-325 (Hydrocodone Bit/Acetaminophen) 1 Each Tablet 1-2 Tab PO Q4HRS PRN Percocet 5-325 Mg Tablet (Oxycodone/Acetaminophen) 1 Each Tablet 1-2 Tab PO Q4- 6HRS Co Q-10 (Ubidecarenone) 300 Mg Capsule 300 Mg PO DAILY Co Q-10 (Ubidecarenone) 200 Mg Capsule 200 Mg PO DAILY Vitamin D (Cholecalciferol (Vitamin D3)) 5,000 Unit Tablet 5,000 Unit PO Zyrtec (Cetirizine Hcl) 10 Mg Tablet 10 Mg PO HS Lipitor (Atorvastatin Calcium) 20 Mg Tablet 20 Mg PO HS Meloxicam 7.5 Mg Tablet 7.5 Mg PO DAILY Tamsulosin Hcl 0.4 Mg Cap.er.24h 0.4 Mg PO DAILY Hydrochlorothiazide Tablet (Hydrochlorothiazide) 12.5 Mg Tablet 12.5 Mg PO DAILY Losartan Potassium 50 Mg Tablet 80 Mg PO DAILY Glipizide 10 Mg Tablet 10 Mg PO HS Metformin Hcl 1,000 Mg Tablet 1,500 Mg PO HS Metformin Hcl 1,000 Mg Tablet 1,000 Mg PO DAILY Vitals/I & O Vital Sign - Last 24 Hours 02/12/17 02/12/17 02/12/17 02/12/17 12:39 15:00 19:00 20:00 Temp 98.6 98.7 98.6 98.7 Pulse 92 95 98 Resp 12 18 B/P 162/79 160/72 140/78 Pulse Ox 95 98 O2 Delivery Room Air O2 Flow Rate 97.0 02/12/17 02/12/17 02/13/17 02/13/17 22:59 23:00 03:00 07:00 Temp 98.4 98.3 98.3 98.4 98.3 98.3 Pulse 90 89 87 Resp 20 16 16 20 B/P 118/79 139/77 134/75 Pulse Ox 98 97 96 96 O2 Delivery Room Air Room Air 02/13/17 02/13/17 02/13/17 02/13/17 08:00 09:46 09:48 10:47 Pulse 87 Resp 18 18 B/P 134/75 Pulse Ox 96 96 O2 Delivery Room Air Room Air Room Air O2 Flow Rate 97.0 97.0 97.0 02/13/17 11:24 Temp 98.0 98.0 Pulse 86 Resp 16 B/P 138/70 Pulse Ox 98 O2 Delivery Room Air Intake and Output 02/12/17 02/12/17 02/13/17 15:00 23:00 07:00 Intake Total 480 ml 360 ml Output Total 300 ml Balance 480 ml 360 ml -300 ml VASIREDDICASSIASOPHIE R MD Feb 13, 2017 11:48
[2017-02-13] MEDS: ENOXAPARIN 40 MG/0.4 ML SYRINGE. SQ SCH (12:00)
[2017-02-13] MEDS: MORPHINE SULFATE 4 MG/ML DISP.SYRIN. IV PRN ×4 (12:32→20:39)
[2017-02-13] MEDS: IV NORMAL SALINE 1000ML BAG 1,000 ML IV SCH ×2 (12:50→21:46)
--- NOTE | 2017-02-13 14:26 | PDOC ---
Provider Note Provider Note Urology: Patient continues to have right flank pain KUB position of proximal stone unchanged. Plan: Cysto-right stent placement tomorrow. Patient understands and agreeable. MARY PEMBERTON DO Feb 13, 2017 14:26
[2017-02-13] MEDS ORDERED: BISACODYL 5 MG TABLET.DR. PO ONE (15:00)
[2017-02-13 15:15] VITALS: BP 137/72
[2017-02-13 19:50] VITALS: BP 141/77
[2017-02-13] MEDS: ATORVASTATIN CALCIUM 20 MG TABLET PO SCH (20:38)
[2017-02-13] MEDS: CETIRIZINE HCL 10 MG TABLET. PO SCH (20:38)
[2017-02-13 23:36] VITALS: BP 133/74
[2017-02-14] VITALS (7 sets, daily range): BP systolic 131–164; BP diastolic 72–89
[2017-02-14] MEDS: MORPHINE SULFATE 4 MG/ML DISP.SYRIN. IV PRN ×2 (03:23→10:04)
[2017-02-14] MEDS: IV NORMAL SALINE 1000ML BAG 1,000 ML IV SCH ×3 (05:00→23:17)
[2017-02-14] MEDS ORDERED: IV RINGERS,LACTATED 1000ML 1,000 ML IV SCH (07:00)
[2017-02-14] MEDS ORDERED: LIDOCAINE 1% 1 ML SYRINGE. ID PRN (07:00)
[2017-02-14] MEDS ORDERED: ONDANSETRON PF 4 MG/2 ML VIAL. IV PRN (07:00)
[2017-02-14] MEDS ORDERED: fentaNYL PF VIAL 100 MCG/2 ML VIAL IV PRN ×2 (07:00)
[2017-02-14] MEDS ORDERED: HYDROmorphone 2 MG/ML VIAL IV PRN (07:00)
[2017-02-14] MEDS ORDERED: MORPHINE SULFATE 2 MG/ML DISP.SYRIN. IV PRN (07:00)
[2017-02-14] MEDS ORDERED: PROCHLORPERAZINE 10 MG/2 ML VIAL. IV PRN (07:00)
[2017-02-14] MEDS ORDERED: IOHEXOL 300 MG/ML 50 ML VIAL. ONE (07:16)
[2017-02-14] MEDS ORDERED: PROPOFOL 20 ML IV ONE (07:26)
[2017-02-14] MEDS ORDERED: fentaNYL PF VIAL 100 MCG/2 ML VIAL ONE (07:27)
[2017-02-14] MEDS ORDERED: ONDANSETRON PF 4 MG/2 ML VIAL. ONE (07:27)
[2017-02-14] MEDS ORDERED: DEXAMETHASONE SOD PHOS 20 MG/5 ML VIAL. ONE (07:27)
[2017-02-14] MEDS ORDERED: LIDOCAINE 2% 100 MG/5 ML SYRINGE. ONE (07:29)
[2017-02-14] MEDS: INSULIN ASPART 300 UNITS/3 ML INSULN.PEN SQ SCH ×3 (08:00→17:24)
[2017-02-14] MEDS ORDERED: DESFLURANE 31 TO 60 MINUTES IH ONE (08:41)
--- NOTE | 2017-02-14 09:03 | PDOC ---
BRIEF OPERATIVE NOTE Date: Feb 14, 2017 Pre-Op Diagnosis Right flank pain, proximal right ureteral calculus Post-Op Diagnosis same Procedure Performed Cystoscopy right retrograde, placement of ureteral stent (4.8fr by 26cm) Surgeon Chinedu Anesthesia Type: General Specimens Obtained None Findings proximal right ureteral calculus pushed into renal pelvis with retrograde Complications None Additional Remarks Tolerated well, will need ESWL MARY PEMBERTON DO Feb 14, 2017 09:03
--- NOTE | 2017-02-14 09:28 | OP ---
DATE OF SURGERY: 02/14/2017 PREOPERATIVE DIAGNOSIS: Right flank pain, proximal right ureteral calculus. POSTOPERATIVE DIAGNOSIS: Right flank pain, proximal right ureteral calculus. PROCEDURE: Cystoscopy, right retrograde pyelogram, placement of indwelling right ureteral stent (4.8 Maltese x 26 cm). SURGEON: Mary Pemberton D.O. ANESTHESIA: General. INDICATIONS AND JUDGMENT: This is a 71-year-old male who was recovering from a total right knee procedure, when he developed acute right flank pain. A CT scan revealed a 6-mm calculus in the proximal right ureter. He was placed on IV hydration and analgesia, but failed to pass the stone spontaneously; therefore, it was felt that he would benefit from cystoscopy, stent placement and in preparation for outpatient shockwave lithotripsy. This was explained to the patient. He appeared to understand and was agreeable. DESCRIPTION OF PROCEDURE: The patient was on scheduled Rocephin antibiotic; therefore, he was taken to the operating room and placed on the operating room table in supine position, given a general anesthetic and then placed in a dorsolithotomy position using Yovani stirrups, since we do not have a cystoscopy table. A C-arm was moved into position. Rigid cystoscopy was performed. The urethra was normal course and caliber. The prostate was 15-20 grams, not obstructing in nature. The scope was advanced into the bladder. The bladder was carefully examined. There was no evidence of calculi within the bladder. The right ureteral orifice was cannulated with an 8-Maltese cone tip ureteral catheter. Contrast was injected. The distal ureter was normal. During the injection of the contrast, it appeared that the stone migrated from the proximal right ureter up into the renal pelvis. I then advanced a 0.035 Glidewire up the right ureteral orifice, up the ureter and into the renal pelvis. Following that, a 4.8 Maltese x 26 cm double-J ureteral stent was advanced over the Glidewire under fluoroscopy up into the renal pelvis. The positioning appeared to be satisfactory. Therefore, the wire was removed leaving the stent in place. The instruments were removed. The patient tolerated the procedure well and was sent to recovery room in satisfactory condition. Plans will be to get a KUB later today to determine the final resting place of the calculus. We will schedule him for outpatient shockwave lithotripsy in the near future. MARY PEMBERTON DO DR: Eveline JOB#: [id number] / [id number]
[2017-02-14] MEDS: LOSARTAN POTASSIUM 50 MG TABLET. PO SCH (10:05)
[2017-02-14] MEDS: TAMSULOSIN 0.4 MG CAP.ER.24H. PO SCH (10:05)
[2017-02-14] MEDS: HYDROCODONE/APAP 5/325MG TABLET. PO PRN (10:09)
[2017-02-14] MEDS ORDERED: BISACODYL 5 MG TABLET.DR. PO ONE (11:15)
[2017-02-14] MEDS ORDERED: MAGNESIUM HYDROXIDE 2,400 MG/30 ML ORAL.SUSP. PO PRN (11:15)
[2017-02-14] MEDS: ENOXAPARIN 40 MG/0.4 ML SYRINGE. SQ SCH (12:00)
--- NOTE | 2017-02-14 14:04 | RAD ---
KUB History: Post stent placement Comparison: February 13, 2017. IMPRESSION: A right upper urinary tract stent has been placed. The proximal pigtail is seen within the mid aspect of the right renal shadow and the distal pigtail is seen within the region of the right side of the urinary bladder. No radiopaque stone is seen along the course of the right ureteral stent. Small radiopaque stone is seen within the lower pole of the right kidney measuring 4 mm. Calcified phleboliths of the left anatomic pelvis are seen. No obstructive bowel pattern is seen. IMPRESSION: Placement of a right ureteral stent.
--- NOTE | 2017-02-14 16:27 | PDOC ---
PROGRESS NOTES Chief Complaint Chief Complaint 1. Acute right lower quadrant abdominal pain, suspected due to 6 mm right ureter calculus with hydronephrosis and hydroureter. 2. Left intrarenal collecting system calculi. 3. Hypertension. 4. Diabetes with hyperglycemia 5. Right lower extremity edema with right thigh redness. 6. Questionable cellulitis of the right thigh. 7. Obesity, BMI 34. Plan s/p Cystoscopy, right retrograde pyelogram, placement of indwelling right ureteral stent IV Rocephin IV hydration , advance diet as tolerated. SSI for hyperglycemia. DVT prophylaxis US legs, no DVT HTN stable Vitals Vitals Vital Signs Date Time Temp Pulse Resp B/P Pulse Ox O2 Delivery O2 Flow Rate FiO2 02/14/17 15:00 97.9 84 20 151/78 97 Room Air 97.9 02/14/17 08:47 10 Physical Exam General: Alert, Oriented X3, Cooperative Heart: Normal S1, Normal S2 Lungs: Clear, Wheezing Extremities: No clubbing, Other (EDEMA rle) Skin: Other (erythema RLE THIGH BACK) Labs LABS Laboratory Tests Test 02/13/17 20:34 02/14/17 09:00 02/14/17 10:37 02/14/17 12:00 Glucose (Fingerstick) 188mg/dL (70-99) 176mg/dL (70-99) 216mg/dL (70-99) 344mg/dL (70-99) Assessment and Plan Assessmemt and Plan Problems Medical Problems: (1) Acute abdominal pain in right flank Status: Acute (2) Renal calculus, right Status: Acute Problems: Comment Review of Relevant I have reviewed the following items deysi (where applicable) has been applied. Labs Laboratory Tests Test 02/12/17 17:04 02/12/17 20:51 02/13/17 04:40 02/13/17 08:02 Glucose (Fingerstick) 149mg/dL (70-99) 212mg/dL (70-99) 215mg/dL (70-99) White Blood Count 7.4x10^3/uL (4.0-11.0) Red Blood Count 3.61x10^6/uL (4.30-5.70) Hemoglobin 10.9g/dL (13.0-17.5) Hematocrit 31.9% (39.0-53.0) Mean Corpuscular Volume 88fL (79-100) Mean Corpuscular Hemoglobin 30pg (25-35) Mean Corpuscular Hemoglobin Concent 34g/dL (31-37) Red Cell Distribution Width 13.2% (11.5-14.5) Platelet Count 160x10^3/uL (140-400) Neutrophils (%) (Auto) 41% (31-73) Lymphocytes (%) (Auto) 47% (24-48) Monocytes (%) (Auto) 9% (0-9) Eosinophils (%) (Auto) 3% (0-3) Basophils (%) (Auto) 0% (0-3) Neutrophils # (Auto) 3.1x10^3uL (1.8-7.7) Lymphocytes # (Auto) 3.5x10^3/uL (1.0-4.8) Monocytes # (Auto) 0.7x10^3/uL (0.0-1.1) Eosinophils # (Auto) 0.2x10^3/uL (0.0-0.7) Basophils # (Auto) 0.0x10^3/uL (0.0-0.2) Sodium Level 138mmol/L (136-145) Potassium Level 4.5mmol/L (3.5-5.1) Chloride Level 105mmol/L (98-107) Carbon Dioxide Level 26mmol/L (21-32) Anion Gap 7 (6-14) Blood Urea Nitrogen 24mg/dL (8-26) Creatinine 2.1mg/dL (0.7-1.3) Estimated GFR (Cockcroft-Gault) 31.1 Glucose Level 188mg/dL (70-99) Calcium Level 8.1mg/dL (8.5-10.1) Test 02/13/17 10:57 02/13/17 16:24 02/13/17 20:34 02/14/17 09:00 Glucose (Fingerstick) 223mg/dL (70-99) 201mg/dL (70-99) 188mg/dL (70-99) 176mg/dL (70-99) Test 02/14/17 10:37 02/14/17 12:00 Glucose (Fingerstick) 216mg/dL (70-99) 344mg/dL (70-99) Laboratory Tests Test 02/13/17 20:34 02/14/17 09:00 02/14/17 10:37 02/14/17 12:00 Glucose (Fingerstick) 188mg/dL (70-99) 176mg/dL (70-99) 216mg/dL (70-99) 344mg/dL (70-99) Medications Current Medications Fentanyl Citrate (Fentanyl 2ml Vial) 50 mcg PRN Q15MIN PRN IV PAIN GREATER THAN 3/10 Last administered on 02/12/17 00:43; Start 02/11/17 at 22:45; Stop at 22:44; Status DC Ondansetron HCl 4 mg 4 mg 1X ONCE IV Last administered on 02/11/17 23:12; Start 02/11/17 at 23:00; Stop 02/11/17 at 23:01; Status DC Sodium Chloride (Iv Sodium Chloride 0.9% 500ml Bag) 500 ml @ 500 mls/hr 1X ONCE IV Last administered on 02/11/17 23:11; Start 02/11/17 at 23:00; Stop at 23:59; Status DC Ondansetron HCl (Zofran) 4 mg 1X ONCE IV Last administered on 02/11/17 23:45 ; Start 02/11/17 at 23:45; Stop 02/11/17 at 23:50; Status DC Ketorolac Tromethamine (Toradol) 10 mg 1X ONCE IV Last administered on 00:49; Start 02/12/17 at 01:00; Stop 02/12/17 at 01:01; Status DC Ondansetron HCl (Zofran) 4 mg 1X ONCE IV Last administered on 02/12/17 00:47 ; Start 02/12/17 at 01:00; Stop 02/12/17 at 01:01; Status DC Tamsulosin HCl (Flomax) 0.4 mg 1X ONCE PO Last administered on 02/12/17 00:51 ; Start 02/12/17 at 01:00; Stop 02/12/17 at 01:01; Status DC Ondansetron HCl (Zofran) 4 mg PRN Q8HRS PRN IV NAUSEA/VOMITING; Start 02/12/17 at 01:00; Stop 02/13/17 at 00:59; Status DC Morphine Sulfate 4 mg 4 mg PRN Q2HR PRN IV SEVERE PAIN; Start 02/12/17 at 01:00 ; Stop 02/13/17 at 00:59; Status DC Sodium Chloride (Iv Sodium Chloride 0.9% 1000ml Bag) 1,000 ml @ 125 mls/hr Q8H IV Last administered on 02/12/17 16:58; Start 02/12/17 at 00:58; Stop at 00:57; Status DC Acetaminophen (Tylenol) 650 mg PRN Q4HRS PRN PO FEVER; Start 02/12/17 at 01:00 ; Stop 02/13/17 at 00:59; Status DC Ketorolac Tromethamine (Toradol) 10 mg PRN Q8HRS PRN IV MODERATE PAIN; Start at 01:00; Stop 02/12/17 at 11:30; Status DC Tamsulosin HCl (Flomax) 0.4 mg DAILY PO Last administered on 02/12/17 08:26; Start 02/12/17 at 09:00; Stop 02/12/17 at 15:49; Status DC Insulin Aspart (Novolog) 0-5 UNITS TIDWMEALS SQ Last administered on 02/12/17 08:31; Start 02/12/17 at 08:00; Stop 02/12/17 at 11:41; Status DC Dextrose (Dextrose 50%-Water Syringe) 12.5 gm PRN Q15MIN PRN IV SEE COMMENTS; Start 02/12/17 at 01:45; Stop 02/12/17 at 11:41; Status DC Atorvastatin Calcium (Lipitor) 20 mg HS PO Last administered on 02/13/17 20:38 ; Start 02/12/17 at 21:00 Cetirizine HCl (Zyrtec) 10 mg HS PO Last administered on 02/13/17 20:38; Start 02/12/17 at 21:00 Acetaminophen/ Hydrocodone Bitart (Lortab 5/325) 1 tab PRN Q4HRS PRN PO PAIN Last administered on 02/14/17 10:09; Start 02/12/17 at 11:30 Losartan Potassium (Cozaar) 80 mg DAILY PO ; Start 02/13/17 at 09:00; Status UNV Tamsulosin HCl (Flomax) 0.4 mg DAILY PO Last administered on 02/14/17 10:05; Start 02/12/17 at 11:30 Enoxaparin Sodium 40 mg 40 mg Q24H SQ Last administered on 02/12/17 12:40; Start 02/12/17 at 12:00 Ceftriaxone Sodium/Sodium Chloride (Rocephin/Iv Sodium Chloride 0.9% 50ml) 50 ml @ 100 mls/hr Q24H IV Last administered on 02/14/17 12:48; Start 02/12/17 at 12:00 Losartan Potassium (Cozaar) 50 mg DAILY PO Last administered on 02/14/17 10:05 ; Start 02/12/17 at 11:30 Insulin Aspart (Novolog) 0-7 UNITS TIDWMEALS SQ Last administered on 02/14/17 12:27; Start 02/12/17 at 12:00 Dextrose (Dextrose 50%-Water Syringe) 12.5 gm PRN Q15MIN PRN IV SEE COMMENTS; Start 02/12/17 at 11:45 Morphine Sulfate 2 mg PRN Q2HR PRN IV PAIN; Start 02/13/17 at 11:00; Stop 02/13 at 12:12; Status DC Morphine Sulfate 4 mg 4 mg PRN Q2HR PRN IV PAIN Last administered on 02/14/17 10:04; Start 02/13/17 at 12:15 Sodium Chloride (Iv Sodium Chloride 0.9% 1000ml Bag) 1,000 ml @ 125 mls/hr Q8H IV Last administered on 02/14/17 12:49; Start 02/13/17 at 13:00 Bisacodyl (Dulcolax Tab) 15 mg ONCE ONCE PO Last administered on 02/13/17 15: 26; Start 02/13/17 at 15:00; Stop 02/13/17 at 15:01; Status DC Ondansetron HCl (Zofran) 4 mg PRN Q6HRS PRN IV NAUSEA/VOMITING; Start 02/14/17 at 07:00; Stop 02/15/17 at 06:59 Fentanyl Citrate (Fentanyl 2ml Vial) 25 mcg PRN Q5MIN PRN IV MILD PAIN; Start 02/14/17 at 07:00; Stop 02/15/17 at 06:59 Fentanyl Citrate (Fentanyl 2ml Vial) 50 mcg PRN Q5MIN PRN IV MODERATE PAIN; Start 02/14/17 at 07:00; Stop 02/15/17 at 06:59 Morphine Sulfate 1 mg 1 mg PRN Q10MIN PRN IV SEVERE PAIN; Start 02/14/17 at 07: 00; Stop 02/15/17 at 06:59 Lactated Ringer's (Iv Lactated Ringers) 1,000 ml @ 30 mls/hr Q24H IV ; Start at 07:00; Stop 02/14/17 at 18:59 Lidocaine HCl 2 ml PRN 1X PRN ID PRIOR TO IV START; Start 02/14/17 at 07:00; Stop 02/15/17 at 06:59 Hydromorphone HCl (Dilaudid) 0.5 mg PRN Q10MIN PRN IV SEV PAIN, Second choice; Start 02/14/17 at 07:00; Stop 02/15/17 at 06:59 Prochlorperazine Edisylate (Compazine) 5 mg PACU PRN PRN IV NAUSEA, MRX1; Start 02/14/17 at 07:00; Stop 02/15/17 at 06:59 Iohexol 50 ml 50 ml STK-MED ONCE .ROUTE Last administered on 02/14/17t 08:25; Start 02/14/17 at 07:16; Stop 02/14/17 at 07:17; Status DC Propofol (Diprivan) 20 ml @ As Directed STK-MED ONCE IV ; Start 02/14/17 at 07: 26; Stop 02/14/17 at 07:27; Status DC Ondansetron HCl (Zofran) 4 mg STK-MED ONCE .ROUTE ; Start 02/14/17 at 07:27; Stop 02/14/17 at 07:28; Status DC Dexamethasone Sodium Phosphate (Decadron) 20 mg STK-MED ONCE .ROUTE ; Start at 07:27; Stop 02/14/17 at 07:28; Status DC Fentanyl Citrate (Fentanyl 2ml Vial) 100 mcg STK-MED ONCE .ROUTE ; Start at 07:27; Stop 02/14/17 at 07:28; Status DC Lidocaine HCl (Lidocaine HCl 2% Abboject) 100 mg STK-MED ONCE .ROUTE ; Start at 07:29; Stop 02/14/17 at 07:30; Status DC Desflurane (Suprane) 30 ml STK-MED ONCE IH ; Start 02/14/17 at 08:41; Stop 02/14 at 08:42; Status DC Bisacodyl (Dulcolax Tab) 10 mg ONCE ONCE PO Last administered on 02/14/17t 12: 24; Start 02/14/17 at 11:15; Stop 02/14/17 at 11:18; Status DC Magnesium Hydroxide (Milk Of Magnesia) 2,400 mg PRN DAILY PRN PO CONSTIPATION; Start 02/14/17 at 11:15 Active Scripts Active Reported Hydrocodone-Apap 5-325 (Hydrocodone Bit/Acetaminophen) 1 Each Tablet 1-2 Tab PO Q4HRS PRN Percocet 5-325 Mg Tablet (Oxycodone/Acetaminophen) 1 Each Tablet 1-2 Tab PO Q4- 6HRS Co Q-10 (Ubidecarenone) 300 Mg Capsule 300 Mg PO DAILY Co Q-10 (Ubidecarenone) 200 Mg Capsule 200 Mg PO DAILY Vitamin D (Cholecalciferol (Vitamin D3)) 5,000 Unit Tablet 5,000 Unit PO Zyrtec (Cetirizine Hcl) 10 Mg Tablet 10 Mg PO HS Lipitor (Atorvastatin Calcium) 20 Mg Tablet 20 Mg PO HS Meloxicam 7.5 Mg Tablet 7.5 Mg PO DAILY Tamsulosin Hcl 0.4 Mg Cap.er.24h 0.4 Mg PO DAILY Hydrochlorothiazide Tablet (Hydrochlorothiazide) 12.5 Mg Tablet 12.5 Mg PO DAILY Losartan Potassium 50 Mg Tablet 80 Mg PO DAILY Glipizide 10 Mg Tablet 10 Mg PO HS Metformin Hcl 1,000 Mg Tablet 1,500 Mg PO HS Metformin Hcl 1,000 Mg Tablet 1,000 Mg PO DAILY Vitals/I & O Vital Sign - Last 24 Hours 02/13/17 02/13/17 02/13/17 02/13/17 18:33 19:50 20:00 20:39 Temp 98.3 98.3 Pulse 88 Resp 18 20 B/P 141/77 Pulse Ox 97 O2 Delivery Room Air Room Air Room Air Room Air O2 Flow Rate 97.0 02/13/17 02/14/17 02/14/17 4/29/17 23:36 03:23 03:56 08:47 Temp 98.5 98.7 98.2 98.5 98.7 98.2 Pulse 87 87 87 Resp 20 16 16 B/P 133/74 138/72 147/76 Pulse Ox 96 96 97 99 O2 Delivery Room Air Room Air Room Air Simple Mask O2 Flow Rate 97.0 10 02/14/17 02/14/17 02/14/17 02/14/17 09:02 09:17 09:40 09:46 Temp 97.4 97.7 97.4 97.7 Pulse 84 88 80 Resp 18 18 12 B/P 156/81 147/77 138/82 Pulse Ox 100 95 98 O2 Delivery Simple Mask Room Air Room Air Room Air 02/14/17 02/14/17 02/14/17 02/14/17 10:04 10:04 10:05 10:09 Temp 97.7 97.7 Pulse 81 81 Resp 18 16 18 B/P 138/88 138/88 Pulse Ox 98 96 98 O2 Delivery Room Air Room Air Room Air 02/14/17 02/14/17 02/14/17 02/14/17 10:34 11:05 11:09 15:00 Temp 97.8 97.9 97.8 97.9 Pulse 92 84 Resp 18 14 18 20 B/P 145/72 151/78 Pulse Ox 98 96 98 97 O2 Delivery Room Air Room Air Room Air Room Air Intake and Output 02/13/17 02/13/17 02/14/17 15:00 23:00 07:00 Intake Total 1100 ml Output Total 400 ml 1475 ml 550 ml Balance -400 ml -375 ml -550 ml SOPHIE TORRES MD Feb 14, 2017 16:27
[2017-02-14] MEDS: ATORVASTATIN CALCIUM 20 MG TABLET PO SCH (20:31)
[2017-02-14] MEDS: CETIRIZINE HCL 10 MG TABLET. PO SCH (20:31)
[2017-02-15 03:24] VITALS: BP 142/80
[2017-02-15 07:00] VITALS: BP 135/75
[2017-02-15] MEDS: IV NORMAL SALINE 1000ML BAG 1,000 ML IV SCH ×2 (08:06→13:00)
[2017-02-15] MEDS: INSULIN ASPART 300 UNITS/3 ML INSULN.PEN SQ SCH ×2 (08:09→12:21)
[2017-02-15] MEDS: TAMSULOSIN 0.4 MG CAP.ER.24H. PO SCH (08:38)
[2017-02-15] MEDS: LOSARTAN POTASSIUM 50 MG TABLET. PO SCH (08:38)
[2017-02-15 11:00] VITALS: BP 139/71
[2017-02-15] MEDS: HYDROCODONE/APAP 5/325MG TABLET. PO PRN (11:03)
--- NOTE | 2017-02-15 11:45 | PDOC ---
PROGRESS NOTES Chief Complaint Chief Complaint 1. Acute right lower quadrant abdominal pain, suspected due to 6 mm right ureter calculus with hydronephrosis and hydroureter. 2. Left intrarenal collecting system calculi. 3. Hypertension. 4. Diabetes with hyperglycemia 5. Right lower extremity edema with right thigh redness. 6. Questionable cellulitis of the right thigh. 7. Obesity, BMI 34. 8. AMANDA: improving. Plan s/p Cystoscopy, right retrograde pyelogram, placement of indwelling right ureteral stent, pain controlled. DC plans today to SNU If bed available. IV Rocephin IV hydration , advance diet as tolerated. SSI for hyperglycemia. DVT prophylaxis US legs, no DVT HTN stable Vitals Vitals Vital Signs Date Time Temp Pulse Resp B/P Pulse Ox O2 Delivery O2 Flow Rate FiO2 02/15/17 11:03 18 98 Room Air 02/15/17 11:00 98.0 80 139/71 98.0 02/14/17 19:50 10.0 Physical Exam General: Alert, Oriented X3, Cooperative Heart: Normal S1, Normal S2 Lungs: Clear, Wheezing Extremities: No clubbing, Other (EDEMA rle) Skin: Other (erythema RLE THIGH BACK) Labs LABS Laboratory Tests Test 02/14/17 12:00 02/14/17 17:11 02/14/17 20:35 02/15/17 07:18 Glucose (Fingerstick) 344mg/dL (70-99) 263mg/dL (70-99) 223mg/dL (70-99) 193mg/dL (70-99) Test 02/15/17 10:33 Glucose (Fingerstick) 204mg/dL (70-99) Assessment and Plan Assessmemt and Plan Problems Medical Problems: (1) Acute abdominal pain in right flank Status: Acute (2) Renal calculus, right Status: Acute Problems: Comment Review of Relevant I have reviewed the following items deysi (where applicable) has been applied. Labs Laboratory Tests Test 02/13/17 16:24 02/13/17 20:34 02/14/17 09:00 02/14/17 10:37 Glucose (Fingerstick) 201mg/dL (70-99) 188mg/dL (70-99) 176mg/dL (70-99) 216mg/dL (70-99) Test 02/14/17 12:00 02/14/17 17:11 02/14/17 20:35 02/15/17 07:18 Glucose (Fingerstick) 344mg/dL (70-99) 263mg/dL (70-99) 223mg/dL (70-99) 193mg/dL (70-99) Test 02/15/17 10:33 Glucose (Fingerstick) 204mg/dL (70-99) Laboratory Tests Test 02/14/17 12:00 02/14/17 17:11 02/14/17 20:35 02/15/17 07:18 Glucose (Fingerstick) 344mg/dL (70-99) 263mg/dL (70-99) 223mg/dL (70-99) 193mg/dL (70-99) Test 02/15/17 10:33 Glucose (Fingerstick) 204mg/dL (70-99) Medications Current Medications Fentanyl Citrate (Fentanyl 2ml Vial) 50 mcg PRN Q15MIN PRN IV PAIN GREATER THAN 3/10 Last administered on 02/12/17 00:43; Start 02/11/17 at 22:45; Stop at 22:44; Status DC Ondansetron HCl 4 mg 4 mg 1X ONCE IV Last administered on 02/11/17 23:12; Start 02/11/17 at 23:00; Stop 02/11/17 at 23:01; Status DC Sodium Chloride (Iv Sodium Chloride 0.9% 500ml Bag) 500 ml @ 500 mls/hr 1X ONCE IV Last administered on 02/11/17 23:11; Start 02/11/17 at 23:00; Stop at 23:59; Status DC Ondansetron HCl (Zofran) 4 mg 1X ONCE IV Last administered on 02/11/17 23:45 ; Start 02/11/17 at 23:45; Stop 02/11/17 at 23:50; Status DC Ketorolac Tromethamine (Toradol) 10 mg 1X ONCE IV Last administered on 00:49; Start 02/12/17 at 01:00; Stop 02/12/17 at 01:01; Status DC Ondansetron HCl (Zofran) 4 mg 1X ONCE IV Last administered on 02/12/17 00:47 ; Start 02/12/17 at 01:00; Stop 02/12/17 at 01:01; Status DC Tamsulosin HCl (Flomax) 0.4 mg 1X ONCE PO Last administered on 02/12/17 00:51 ; Start 02/12/17 at 01:00; Stop 02/12/17 at 01:01; Status DC Ondansetron HCl (Zofran) 4 mg PRN Q8HRS PRN IV NAUSEA/VOMITING; Start 02/12/17 at 01:00; Stop 02/13/17 at 00:59; Status DC Morphine Sulfate 4 mg 4 mg PRN Q2HR PRN IV SEVERE PAIN; Start 02/12/17 at 01:00 ; Stop 02/13/17 at 00:59; Status DC Sodium Chloride (Iv Sodium Chloride 0.9% 1000ml Bag) 1,000 ml @ 125 mls/hr Q8H IV Last administered on 02/12/17 16:58; Start 02/12/17 at 00:58; Stop at 00:57; Status DC Acetaminophen (Tylenol) 650 mg PRN Q4HRS PRN PO FEVER; Start 02/12/17 at 01:00 ; Stop 02/13/17 at 00:59; Status DC Ketorolac Tromethamine (Toradol) 10 mg PRN Q8HRS PRN IV MODERATE PAIN; Start at 01:00; Stop 02/12/17 at 11:30; Status DC Tamsulosin HCl (Flomax) 0.4 mg DAILY PO Last administered on 02/12/17 08:26; Start 02/12/17 at 09:00; Stop 02/12/17 at 15:49; Status DC Insulin Aspart (Novolog) 0-5 UNITS TIDWMEALS SQ Last administered on 02/12/17 08:31; Start 02/12/17 at 08:00; Stop 02/12/17 at 11:41; Status DC Dextrose (Dextrose 50%-Water Syringe) 12.5 gm PRN Q15MIN PRN IV SEE COMMENTS; Start 02/12/17 at 01:45; Stop 02/12/17 at 11:41; Status DC Atorvastatin Calcium (Lipitor) 20 mg HS PO Last administered on 02/14/17 20:31 ; Start 02/12/17 at 21:00 Cetirizine HCl (Zyrtec) 10 mg HS PO Last administered on 02/14/17 20:31; Start 02/12/17 at 21:00 Acetaminophen/ Hydrocodone Bitart (Lortab 5/325) 1 tab PRN Q4HRS PRN PO PAIN Last administered on 02/15/17 11:03; Start 02/12/17 at 11:30 Losartan Potassium (Cozaar) 80 mg DAILY PO ; Start 02/13/17 at 09:00; Status UNV Tamsulosin HCl (Flomax) 0.4 mg DAILY PO Last administered on 02/15/17 08:38; Start 02/12/17 at 11:30 Enoxaparin Sodium 40 mg 40 mg Q24H SQ Last administered on 02/12/17 12:40; Start 02/12/17 at 12:00 Ceftriaxone Sodium/Sodium Chloride (Rocephin/Iv Sodium Chloride 0.9% 50ml) 50 ml @ 100 mls/hr Q24H IV Last administered on 02/14/17 12:48; Start 02/12/17 at 12:00 Losartan Potassium (Cozaar) 50 mg DAILY PO Last administered on 02/15/17 08:38 ; Start 02/12/17 at 11:30 Insulin Aspart (Novolog) 0-7 UNITS TIDWMEALS SQ Last administered on 02/15/17 08:09; Start 02/12/17 at 12:00 Dextrose (Dextrose 50%-Water Syringe) 12.5 gm PRN Q15MIN PRN IV SEE COMMENTS; Start 02/12/17 at 11:45 Morphine Sulfate 2 mg PRN Q2HR PRN IV PAIN; Start 02/13/17 at 11:00; Stop 02/13 at 12:12; Status DC Morphine Sulfate 4 mg 4 mg PRN Q2HR PRN IV PAIN Last administered on 02/14/17 10:04; Start 02/13/17 at 12:15 Sodium Chloride (Iv Sodium Chloride 0.9% 1000ml Bag) 1,000 ml @ 125 mls/hr Q8H IV Last administered on 02/15/17 08:06; Start 02/13/17 at 13:00 Bisacodyl (Dulcolax Tab) 15 mg ONCE ONCE PO Last administered on 4/28/17at 15: 26; Start 02/13/17 at 15:00; Stop 02/13/17 at 15:01; Status DC Ondansetron HCl (Zofran) 4 mg PRN Q6HRS PRN IV NAUSEA/VOMITING; Start 02/14/17 at 07:00; Stop 02/15/17 at 06:59; Status DC Fentanyl Citrate (Fentanyl 2ml Vial) 25 mcg PRN Q5MIN PRN IV MILD PAIN; Start 02/14/17 at 07:00; Stop 02/15/17 at 06:59; Status DC Fentanyl Citrate (Fentanyl 2ml Vial) 50 mcg PRN Q5MIN PRN IV MODERATE PAIN; Start 02/14/17 at 07:00; Stop 02/15/17 at 06:59; Status DC Morphine Sulfate 1 mg 1 mg PRN Q10MIN PRN IV SEVERE PAIN; Start 02/14/17 at 07: 00; Stop 02/15/17 at 06:59; Status DC Lactated Ringer's (Iv Lactated Ringers) 1,000 ml @ 30 mls/hr Q24H IV ; Start at 07:00; Stop 02/14/17 at 18:59; Status DC Lidocaine HCl 2 ml PRN 1X PRN ID PRIOR TO IV START; Start 02/14/17 at 07:00; Stop 02/15/17 at 06:59; Status DC Hydromorphone HCl (Dilaudid) 0.5 mg PRN Q10MIN PRN IV SEV PAIN, Second choice; Start 02/14/17 at 07:00; Stop 02/15/17 at 06:59; Status DC Prochlorperazine Edisylate (Compazine) 5 mg PACU PRN PRN IV NAUSEA, MRX1; Start 02/14/17 at 07:00; Stop 02/15/17 at 06:59; Status DC Iohexol 50 ml 50 ml STK-MED ONCE .ROUTE Last administered on 02/14/17t 08:25; Start 02/14/17 at 07:16; Stop 02/14/17 at 07:17; Status DC Propofol (Diprivan) 20 ml @ As Directed STK-MED ONCE IV ; Start 02/14/17 at 07: 26; Stop 02/14/17 at 07:27; Status DC Ondansetron HCl (Zofran) 4 mg STK-MED ONCE .ROUTE ; Start 02/14/17 at 07:27; Stop 02/14/17 at 07:28; Status DC Dexamethasone Sodium Phosphate (Decadron) 20 mg STK-MED ONCE .ROUTE ; Start at 07:27; Stop 02/14/17 at 07:28; Status DC Fentanyl Citrate (Fentanyl 2ml Vial) 100 mcg STK-MED ONCE .ROUTE ; Start at 07:27; Stop 02/14/17 at 07:28; Status DC Lidocaine HCl (Lidocaine HCl 2% Abboject) 100 mg STK-MED ONCE .ROUTE ; Start at 07:29; Stop 02/14/17 at 07:30; Status DC Desflurane (Suprane) 30 ml STK-MED ONCE IH ; Start 02/14/17 at 08:41; Stop 02/14 at 08:42; Status DC Bisacodyl (Dulcolax Tab) 10 mg ONCE ONCE PO Last administered on 02/14/17 12: 24; Start 02/14/17 at 11:15; Stop 02/14/17 at 11:18; Status DC Magnesium Hydroxide (Milk Of Magnesia) 2,400 mg PRN DAILY PRN PO CONSTIPATION Last administered on 02/15/17 08:38; Start 02/14/17 at 11:15 Active Scripts Active Reported Hydrocodone-Apap 5-325 (Hydrocodone Bit/Acetaminophen) 1 Each Tablet 1-2 Tab PO Q4HRS PRN Percocet 5-325 Mg Tablet (Oxycodone/Acetaminophen) 1 Each Tablet 1-2 Tab PO Q4- 6HRS Co Q-10 (Ubidecarenone) 300 Mg Capsule 300 Mg PO DAILY Co Q-10 (Ubidecarenone) 200 Mg Capsule 200 Mg PO DAILY Vitamin D (Cholecalciferol (Vitamin D3)) 5,000 Unit Tablet 5,000 Unit PO Zyrtec (Cetirizine Hcl) 10 Mg Tablet 10 Mg PO HS Lipitor (Atorvastatin Calcium) 20 Mg Tablet 20 Mg PO HS Meloxicam 7.5 Mg Tablet 7.5 Mg PO DAILY Tamsulosin Hcl 0.4 Mg Cap.er.24h 0.4 Mg PO DAILY Hydrochlorothiazide Tablet (Hydrochlorothiazide) 12.5 Mg Tablet 12.5 Mg PO DAILY Losartan Potassium 50 Mg Tablet 80 Mg PO DAILY Glipizide 10 Mg Tablet 10 Mg PO HS Metformin Hcl 1,000 Mg Tablet 1,500 Mg PO HS Metformin Hcl 1,000 Mg Tablet 1,000 Mg PO DAILY Vitals/I & O Vital Sign - Last 24 Hours 02/14/17 02/14/17 02/14/17 02/14/17 15:00 19:00 19:50 23:18 Temp 97.9 97.4 97.5 97.9 97.4 97.5 Pulse 84 82 87 Resp 20 16 18 B/P 151/78 164/89 131/72 Pulse Ox 97 95 98 O2 Delivery Room Air Room Air Room Air Room Air O2 Flow Rate 10.0 02/15/17 02/15/17 02/15/17 02/15/17 03:24 07:00 08:10 08:38 Temp 98.6 98.2 98.6 98.2 Pulse 83 81 81 Resp 18 20 B/P 142/80 135/75 135/75 Pulse Ox 96 98 O2 Delivery Room Air Room Air Room Air 02/15/17 02/15/17 11:00 11:03 Temp 98.0 98.0 Pulse 80 Resp 20 18 B/P 139/71 Pulse Ox 98 98 O2 Delivery Room Air Room Air Intake and Output 02/14/17 02/14/17 02/15/17 15:00 23:00 07:00 Intake Total 360 ml 3540 ml Output Total 250 ml 1770 ml 1950 ml Balance 110 ml 1770 ml -1950 ml SOPHIE TORRES MD Feb 15, 2017 11:45
[2017-02-15 12:15] LABS: CALCIUM 8.5 mg/dL (8.5-10.1); GFR 73.2; POTASSIUM 3.9 mmol/L (3.5-5.1)
[2017-02-15] MEDS: ENOXAPARIN 40 MG/0.4 ML SYRINGE. SQ SCH (12:18)
[2017-02-15 14:54] VITALS: BP 149/78
--- NOTE | 2017-02-15 19:02 | DS ---
DATE OF DISCHARGE: 02/15/2017 DISCHARGE DIAGNOSES: 1. Acute right lower quadrant abdominal pain due to 6 mm right ureteral calculus, status post cystoscopy with right retrograde pyelogram with placement of indwelling right ureteral stents, pain, resolved. 2. Left intrarenal collecting system calculi. 3. Hypertension. 4. Diabetes mellitus with hyperglycemia, resolved. 5. Right lower extremity edema, resolving. 6. Questionable cellulitis of the right thigh, improving. 7. Obesity, BMI 34. 8. Acute kidney injury due to ureteral stone, resolved. BRIEF HOSPITAL COURSE: A 71-year-old male patient transferred from a detention facility for acute right lower quadrant abdominal pain. On initial presentation, he was diagnosed with a right ureteral stone. Initially, he was treated with symptomatic management, pain and IV hydration. However, the pain did not improve. Dr. Che took him to cystoscopy and indwelling right ureteral stent placement and later his symptoms improved and the patient tolerated pain very well. He has been ____ for nearly 24 hours and hemodynamically stable and labs improved and deemed clinically stable and allowed to go to detention facility. DISCHARGE EXAM: GENERAL: Alert, oriented x 3. HEART: S1, S2 present. CHEST: Anterior chest clear. ABDOMEN: Soft, nontender, no organomegaly. EXTREMITIES: Right lower extremity edema present. DISCHARGE DISPOSITION: [facility] facility healthcare ____. DISCHARGE CONDITION: Stable. MEDICATION: Reviewed and reconciled, see [facility]. Total time spent for discharge is 31 minutes for patient education, counseling and coordination of care. FOLLOW UP: With Dr. Che in 2 weeks. Above information has been discussed with the patient, agreed with current plan. RUBI DIXON MD DR: SHANE/hailey JOB#: [id number] / [id number]
--- NOTE | 2017-02-16 09:54 | DS ---
DATE OF DISCHARGE: 02/15/2017 DISCHARGE DIAGNOSES: 1. Acute right lower quadrant abdominal pain due to 6 mm right ureteral calculus, status post cystoscopy with right retrograde pyelogram with placement of indwelling right ureteral stents, pain, resolved. 2. Left intrarenal collecting system calculi. 3. Hypertension. 4. Diabetes mellitus with hyperglycemia, resolved. 5. Right lower extremity edema, resolving. 6. Questionable cellulitis of the right thigh, improving. 7. Obesity, BMI 34. 8. Acute kidney injury due to ureteral stone, resolved. BRIEF HOSPITAL COURSE: A 71-year-old male patient transferred from a halfway facility for acute right lower quadrant abdominal pain. On initial presentation, he was diagnosed with a right ureteral stone. Initially, he was treated with symptomatic management, pain and IV hydration. However, the pain did not improve. Dr. Che took him to cystoscopy and indwelling right ureteral stent placement and later his symptoms improved and the patient tolerated pain very well. He has been ____ for nearly 24 hours and hemodynamically stable and labs improved and deemed clinically stable and allowed to go to halfway facility. DISCHARGE EXAM: GENERAL: Alert, oriented x 3. HEART: S1, S2 present. CHEST: Anterior chest clear. ABDOMEN: Soft, nontender, no organomegaly. EXTREMITIES: Right lower extremity edema present. DISCHARGE DISPOSITION: long term facility healthcare ____. DISCHARGE CONDITION: Stable. MEDICATION: Reviewed and reconciled, see MRAD. Total time spent for discharge is 31 minutes for patient education, counseling and coordination of care. FOLLOW UP: With Dr. Che in 2 weeks. Above information has been discussed with the patient, agreed with current plan. SOPHIE TORRES MD DR: CHERRI/hailey JOB#: [id number] / [id number]
== END 2017-02-15 16:04 | DRG 694 ==
LOC: ER 22:27 → 5 SOUTH 02-12 00:33
PROVIDERS: ADMIT Internal Medicine; ATTEND Internal Medicine
PROC: 0T768DZ Dilation of Right Ureter with Intraluminal Device, Via Natural or Artificial Opening Endoscopic (ICD-10-PCS; 2017-02-14)
PROC: BT1D1ZZ Fluoroscopy of Right Kidney, Ureter and Bladder using Low Osmolar Contrast (ICD-10-PCS; principal; 2017-02-14 08:00)
DX: N13.2 Hydronephrosis with renal and ureteral calculous obstruction (principal); N13.4 Hydroureter; N17.9 Acute kidney failure, unspecified; E11.65 Type 2 diabetes mellitus with hyperglycemia; E66.9 Obesity, unspecified; I10 Essential (primary) hypertension; K57.30 Diverticulosis of large intestine without perforation or abscess without bleeding; R60.0 Localized edema; Z96.651 Presence of right artificial knee joint; F32.9 Major depressive disorder, single episode, unspecified; Z91.013 Allergy to seafood; Z68.34 Body mass index [BMI] 34.0-34.9, adult; Z87.442 Personal history of urinary calculi
CPT/HCPCS: 36415; 74000; 74176; 74420; 80048; 80053; 81001; 82947; 83690; 85027; 87641; 93005; 93971; 96361; 96374; 96375; 96376; C1769; C2617; J0696; J1100; J1650; J1815; J1885; J2270; J2405; J2704; J3010; J7030; J7040; Q9967; 97110; 97116; 99285-25

== ENCOUNTER 2017-03-05 14:16 | Day surgery (SDC) | payer MEDICARE, BC ==
[~2017-03-05] VITALS: Ht 188 cm; Wt 114.3 kg
[~2017-03-05 14:16] MED LIST: ATOR20TA PO; CETI10TA22 PO; CHOL500015 PO; GLIP10TA13 PO; HYDR-2666 PO; HYDR12.58 PO; HYDROmorphone 2 MG/ML VIAL IV PRN; IV RINGERS,LACTATED 1000ML 1,000 ML IV SCH; LIDOCAINE 1% 1 ML SYRINGE. ID PRN; LOSA50TA6 PO; MELO-156 PO; METF-620 PO; MORPHINE SULFATE 2 MG/ML DISP.SYRIN. IV PRN; ONDANSETRON PF 4 MG/2 ML VIAL. IV PRN; OXYC-323 PO; PROCHLORPERAZINE 10 MG/2 ML VIAL. IV PRN; TAMS0.4C2 PO; UBID100C12 PO; UBID200C4 PO; UBID300C PO; VALS1TAB3 PO; fentaNYL PF VIAL 100 MCG/2 ML VIAL IV PRN
[2017-03-05] MEDS ORDERED: IV RINGERS,LACTATED 1000ML 1,000 ML IV ONE (15:00)
[2017-03-05 15:04] LABS: BASO % 0 % (0-3); EOS % 1 % (0-3); HEMATOCRIT 38.8 % (39.0-53.0); LYMPH % 33 % (24-48); MEAN CORPUSCULAR HEMOGLOBIN 29 pg (25-35); MEAN CORPUSCULAR HGB CONC 34 g/dL (31-37); MEAN CORPUSCULAR VOLUME 87 fL (79-100); MONO % 7 % (0-9); NEUT % 58 % (31-73); PLATELET COUNT 217 x10^3/uL (140-400); RED BLOOD COUNT 4.46 x10^6/uL (4.30-5.70)
[2017-03-05 15:07] LABS: BILIRUBIN,URINE NEGATIVE (NEG); GLUCOSE,URINE NEGATIVE (NEG); NITRITE,URINE NEGATIVE (NEG); PROTEIN,URINE 30 mg/dL (NEG-TRACE); UROBILINOGEN,URINE 0.2 mg/dL (0.2 mg/dL)
[2017-03-05 15:14] LABS: RBC,URINE >40 /HPF (0-2)
[2017-03-05 15:15] LABS: BACTERIA,URINE FEW /HPF (0-FEW); SQUAMOUS EPITHELIAL CELL,UR FEW /LPF
[2017-03-05 15:20] LABS: CALCIUM 9.4 mg/dL (8.5-10.1); CREATININE 1.7 mg/dL (0.7-1.3); GFR 39.7; POTASSIUM 3.8 mmol/L (3.5-5.1)
[2017-03-05] MEDS ORDERED: LIDOCAINE 2% PF Vial for OR 5 ML VIAL. ONE (16:09)
[2017-03-05] MEDS ORDERED: PROPOFOL 20 ML IV ONE (16:09)
[2017-03-05] MEDS ORDERED: SEVOFLURANE UP TO 15 MINUTES. IH ONE (16:09)
[2017-03-05] MEDS ORDERED: DEXAMETHASONE SOD PHOS 20 MG/5 ML VIAL. ONE (16:09)
[2017-03-05] MEDS ORDERED: ONDANSETRON PF 4 MG/2 ML VIAL. ONE (16:10)
[2017-03-05] MEDS ORDERED: IOHEXOL 300 MG/ML 50 ML VIAL. ONE (16:23)
[2017-03-05] MEDS ORDERED: PHENYLEPHRINE in 0.9% NACL PF 1 MG/10 ML DISP.SYRIN. IV ONE (17:13)
--- NOTE | 2017-03-05 17:33 | DISCH ---
DISCHARGE INSTRUCTIONS Condition on Discharge Condition on Discharge: Stable Activity After Discharge Activity Instructions for Disc: Resume previous activity Driving Instructions after Dis: Do not drive today Diet after Discharge Diet after Discharge: Regular Contacting the DR. after DC Call your doctor for: Concerns you may have Follow-Up Follow up with: Dr Pemberton's office will call with f/u appt. MARY PEMBERTON DO March 05, 2017 17:33
--- NOTE | 2017-03-05 17:52 | PDOC ---
BRIEF OPERATIVE NOTE Date: March 05, 2017 Pre-Op Diagnosis Entrapped right ureteral stent Post-Op Diagnosis Same, distal right stone debris with obstruction Procedure Performed Cystoscopy removal of entrapped ureteral stent retrograde pyelogram placement of 4.8Fr by 26cm right ureteral stent Surgeon Chinedu Anesthesia Type: General Specimens Obtained sand-like stone particles (uric acid?) sent for stone analysis Findings obstructed distal left ureter due to stone debris/uric acid stones Complications none Additional Remarks rigid ureteroscope and laser not available at this time MARY PEMBERTON DO March 05, 2017 17:52
[2017-03-05] MEDS ORDERED: CEPH-264 PO (18:04)
[2017-03-05 18:34] VITALS: BP 156/76
--- NOTE | 2017-03-05 22:32 | OP ---
DATE OF SURGERY: 03/05/2017 PREOPERATIVE DIAGNOSIS: Entrapped right ureteral stent. POSTOPERATIVE DIAGNOSIS: Entrapped right ureteral stent, large stone fragments in the distal right ureter (uric acid stones). PROCEDURE: Cystoscopy, retrograde pyelogram, removal of indwelling entrapped right ureteral stent, placement of 4.8-Montenegrin x 26-cm double-J ureteral stent. SURGEON: Mary Pemberton DO. ANESTHESIA: General. INDICATIONS AND JUDGMENT: This is a 71-year-old male that had previously undergone cystoscopy/stent placement for a large proximal right ureteral calculus. That was followed by shockwave lithotripsy. The KUB following the shockwave lithotripsy revealed no radiopaque stones alongside the stent, therefore, it was felt that the stents could be removed. I performed cystoscopy in the office yesterday and attempted to remove the right ureteral stent, but the last third of the stent became entrapped in the distal right ureter could not be removed. Therefore, the patient was scheduled today for cystoscopy/stent removal under general anesthesia. The procedure was explained to the patient. He appeared to understand and was agreeable. DESCRIPTION OF PROCEDURE: The patient was preloaded with a gram of Rocephin. He was taken to the operating room and placed on the operating room table in a supine position. He was given a general anesthetic and then placed in a dorsolithotomy position using Yovani stirrups since we do not have a cystoscopy table. C-arm was moved into position. Rigid cystoscopy was performed. The bladder was examined. The patient had multiple yellow crystals floating in the bladder, which appeared to be uric acid crystals. The distal portion of the stent was also encrusted with these crystals. I placed an 8-Montenegrin cone tip ureteral catheter alongside the stent in the right ureteral orifice and injected contrast. The fluoroscopy was not very good and I could not tell for sure if there was stone in the distal ureter causing the obstruction and making it difficult to remove the ureter stent or not. I then carefully grasped the stent and was able to put steady pressure on the stent and remove it. The incrusted stent was removed. I then tried to pass an 0.035 Glidewire up the right ureteral orifice, but I met an obstruction just inside the right ureteral orifice. It was felt like there was either a large stone or multiple stones in that area. I had to advance a 5-Montenegrin open-ended ureteral catheter into the right ureteral orifice and then pass a Glidewire through the stent and finally I was able to pass the Glidewire beyond the obstructing stone or stone debris. Therefore, it was felt that the patient either had a large uric acid stone or multiple uric acid stones in the distal ureter. We did not have an ureteroscope or a laser available this late in the day. Therefore, I decided to re-stent the ureter and come back at a later day with a rigid ureteroscope and holmium laser. I was able to advance a 4.8-Montenegrin x 26-cm double-J ureteral stent over the Glidewire past the obstructing stones and into the renal pelvis. The positioning appeared to be satisfactory, therefore, the wire was removed leaving the stent in place. The patient tolerated the procedure well and was sent to recovery room in satisfactory condition. I tried to collect some granular debris from the bladder and sent it for stone analysis that certainly appears that he has uric acid stones. This would also explain why the stones did not show up very well on the patient's KUB the other day. They are ____. The patient will be sent home with Keflex antibiotics. He already has some pain pills at home. ____ alkalinize his urine, but I am not able to use Urocit-K because he has elevated creatinine. The patient will need ureteroscopy, holmium laser at a later date to clear out the distal ureter. MARY PEMBERTON DO DR: STAN/hailey JOB#: [id number] / [id number]
== END 2017-03-05 18:45 | disposition home or self-care (01) ==
LOC: SURG 14:16 → EDSTATUS 17:00 → SURG 18:45
PROVIDERS: ATTEND Urology
DX: N20.1 Calculus of ureter (principal); I10 Essential (primary) hypertension; E11.9 Type 2 diabetes mellitus without complications; Z98.41 Cataract extraction status, right eye; Z98.42 Cataract extraction status, left eye; Z87.442 Personal history of urinary calculi; Z87.39 Personal history of other diseases of the musculoskeletal system and connective tissue; Z86.14 Personal history of Methicillin resistant Staphylococcus aureus infection
CPT/HCPCS: 36415; 52332; 76000; 80048; 81001; 82947; 85027; 87086; C1769; C2617; J0690; J1100; J2370; J2405; J2704; Q9967

== ENCOUNTER → 2017-03-24 | Day surgery (SDC) | payer MEDICARE, BC ==
[~2017-03-24] VITALS: Ht 157.5 cm; Wt 115.7 kg
[~2017-03-24] MED LIST changes: +CEPH-264 PO; +CITR473S3 PO; +DEXAMETHASONE SOD PHOS 20 MG/5 ML VIAL. ONE; +FUROSEMIDE 40 MG/4 ML VIAL. ONE; +IOHEXOL 300 MG/ML 50 ML VIAL. ONE; +KETOROLAC 30 MG/ML INJ FOR OR. INJ ONE; +LIDOCAINE 2% PF Vial for OR 5 ML VIAL. ONE; +ONDANSETRON PF 4 MG/2 ML VIAL. ONE; +PROPOFOL 20 ML IV ONE; +SEVOFLURANE 31 TO 60 MINUTES. IH ONE; +ePHEDrine PF IN SALINE 50 MG/5 ML DISP.SYRIN IV ONE; +fentaNYL PF VIAL 100 MCG/2 ML VIAL ONE
[2017-03-24 09:34] LABS: BASO % 0 % (0-3); EOS % 3 % (0-3); HEMATOCRIT 37.1 % (39.0-53.0); HEMOGLOBIN 12.8 g/dL (13.0-17.5); LYMPH # 3.3 x10^3/uL (1.0-4.8); LYMPH % 51 % (24-48); MEAN CORPUSCULAR HEMOGLOBIN 30 pg (25-35); MEAN CORPUSCULAR HGB CONC 35 g/dL (31-37); MEAN CORPUSCULAR VOLUME 86 fL (79-100); MONO % 8 % (0-9); NEUT % 39 % (31-73); PLATELET COUNT 169 x10^3/uL (140-400); RED BLOOD COUNT 4.31 x10^6/uL (4.30-5.70); RED CELL DISTRIBUTION WIDTH 13.4 % (11.5-14.5); WHITE BLOOD COUNT 6.5 x10^3/uL (4.0-11.0)
[2017-03-24 09:45] LABS: CALCIUM 8.8 mg/dL (8.5-10.1); GFR 73.2; POTASSIUM 3.9 mmol/L (3.5-5.1)
--- NOTE | 2017-03-24 11:22 | PDOC ---
BRIEF OPERATIVE NOTE Date: Mar 24, 2017 Pre-Op Diagnosis Distal right ureteral calculus Post-Op Diagnosis same Procedure Performed cystoscopy removal right ureteral stent Diagnostic ureteroscopy retrograde pyelogram Surgeon Chinedu Anesthesia Type: General Specimens Obtained none Findings no calculus identified, resolved with urine alkalinazation Complications none Additional Remarks stent not replaced MARY PEMBERTON DO Mar 24, 2017 11:22
--- NOTE | 2017-03-24 11:23 | DISCH ---
DISCHARGE INSTRUCTIONS Condition on Discharge Condition on Discharge: Stable Activity After Discharge Activity Instructions for Disc: Activity as tolerated Driving Instructions after Dis: Do not drive today Diet after Discharge Diet after Discharge: Regular Additional Diet Restrictions: push fluids 6-8 12oz glasses water/day Contacting the [facility] after DC Call your doctor for: Concerns you may have Follow-Up Follow up with: With family doctor MARY PEMBERTON DO Mar 24, 2017 11:23
--- NOTE | 2017-03-24 11:56 | OP ---
DATE OF SURGERY: 03/24/2017 PREOPERATIVE DIAGNOSIS: Right ureteral calculus (uric acid). POSTOPERATIVE DIAGNOSIS: Right ureteral calculus (uric acid). PROCEDURE: Cystoscopy, stent removal, diagnostic ureteroscopy, retrograde pyelogram. SURGEON: Mary Pemberton DO. ANESTHESIA: General. INDICATIONS AND JUDGMENT: This is a 71-year-old male with a history of a rather large distal right ureteral calculus, uric acid. After his last procedure I placed him on Cytra oral solution to alkalinize the urine and to hopefully decrease the size of his uric acid stone. He is brought to outpatient surgery today to undergo cystoscopy, stent removal and ureteroscopy with holmium laser lithotripsy to remove the distal right ureteral calculus. The procedure was explained to the patient. He appeared to understand and was agreeable. DESCRIPTION OF PROCEDURE: The patient was preloaded with IV antibiotics. He was then taken to the operating room and placed on the operating room table in supine position, given a general anesthetic and then placed in a dorsolithotomy position using Yovani stirrups with careful attention to his right knee. A C-arm was moved into position. Rigid cystoscopy was performed. The urethra was unremarkable. The prostate gland was small, 20 grams, not obstructing in nature. The scope was advanced into the bladder. The distal portion of the stent was identified. It was grasped with grasping forceps and removed without difficulty. A 0.035 Glidewire was then advanced up the right ureteral orifice. The patient was given 10 mg of IV Lasix. The distal ureter was balloon dilated for 3 minutes. I then passed a rigid Balderrama ureteroscope up the right ureteral orifice alongside the Glidewire. I did not find a calculus in the distal right ureter as expected. Therefore, I advanced the scope even higher and did not find a calculus. I injected some contrast through the ureteroscope, I did not see any filling defects in the more proximal ureter and the contrast drained immediately without signs of obstruction. The ureteroscope was then removed. It appears that the uric acid stone must have passed or dissolved with urine alkalinization. I certainly did not find a calculus today. I decided not to replace the stent. The instruments were removed. The patient tolerated the procedure well and was sent to recovery room in satisfactory condition. He was given 15 mg of Toradol. Plans will be to discharge the patient home. He was sent home with a prescription for hydrocodone 7.5 mg, dispensed 20, also a prescription for Cipro 500 mg p.o. b.i.d. for 10 days. He will follow up as needed. MARY PEMBERTON DO DR: TSAN/hailey JOB#: [id number] / [id number]
[2017-03-24 12:10] VITALS: BP 167/78
[2017-03-24 13:11] LABS: BILIRUBIN,URINE NEGATIVE (NEG); GLUCOSE,URINE NEGATIVE (NEG); NITRITE,URINE NEGATIVE (NEG); PROTEIN,URINE 100 mg/dL (NEG-TRACE); UROBILINOGEN,URINE 0.2 mg/dL (0.2 mg/dL)
[2017-03-24 13:20] LABS: BACTERIA,URINE 0 /HPF (0-FEW); RBC,URINE TNTC /HPF (0-2)
== END ==
LOC: SURG 08:28
PROVIDERS: ATTEND Urology
DX: N20.1 Calculus of ureter (principal); I10 Essential (primary) hypertension; E11.9 Type 2 diabetes mellitus without complications; G47.30 Sleep apnea, unspecified; F17.290 Nicotine dependence, other tobacco product, uncomplicated; Z98.890 Other specified postprocedural states; Z88.8 Allergy status to other drugs, medicaments and biological substances; Z98.41 Cataract extraction status, right eye; Z98.42 Cataract extraction status, left eye; Z87.19 Personal history of other diseases of the digestive system; Z96.651 Presence of right artificial knee joint
CPT/HCPCS: 36415; 52310; 74420; 80048; 81001; 82962; 85027; 87086; C1769; J0690; J1100; J1885; J1940; J2405; J2704; J3010; Q9967